=== PATIENT | male | born 1945 | race Caucasian/White ===

== ENCOUNTER 2018-11-30 10:53 | Observation (INO) | payer MEDICARE, SELFPAY ==
[2018-11-30] VITALS (9 sets, daily range): BP systolic 126–153; BP diastolic 60–79; PULSE 55–71; RESP 15–25; TEMP 36.4–36.6; O2SAT 93–96; BMI 31.4; BMI 29.0; BMI 29.1
--- NOTE | 2018-11-30 11:17 | RAD_ITS ---
STUDY: X-RAY CHEST REASON FOR EXAM: Male, 73 years old. Syncopal episode. TECHNIQUE: AP and lateral views of the chest. COMPARISON: None. FINDINGS: EKG electrodes are seen. The lungs are clear and expanded. Scattered calcified granulomas. There is no demonstrated pleural abnormality. There is borderline cardiomegaly. Normal mediastinum and stephanie. Normal visualized pulmonary arteries. There is atherosclerotic tortuosity of the aortic arch and descending thoracic aorta. There are degenerative changes of the visualized thoracic spine. Normal visualized ribs, clavicles, and shoulders. There is no demonstrated abnormality of the visualized soft tissue structures of the upper abdomen. RAD/Chest PA and Lateral IMPRESSION: No acute abnormality is seen. Electronically Signed: Edilberto Alva, at 12:53 EDT , Service support ,
--- NOTE | 2018-11-30 11:17 | EKG12_ITS ---
Test Reason : SYNCOPE Blood Pressure : / mmHG Vent. Rate : 064 BPM Atrial Rate : 064 BPM P-R Int : 158 ms QRS Dur : 088 ms QT Int : 410 ms P-R-T Axes : 020 -02 013 degrees QTc Int : 422 ms Normal sinus rhythm Inferior infarct , age undetermined ,cannot be excluded Poor R-wave progression Abnormal ECG Confirmed by JULES MCDONOUGH, TARAN ([id number]), continuity editor DEBORAH YANES ([id number]) on 12/04/2018 11:24:20 AM Referred By: Flavia Stern Confirmed By:TARAN VICENTE MD
[2018-11-30 11:41] LABS: Absolute Lymphocyte Count 2.02 X10^3/uL (0.83-4.51); Absolute Neutrophil Count 3.8 X10^3/uL (2.0-7.7); Basophil# 0.04 X10^3/uL; Basophil% 0.6 % (0-1); Eosinophil# 0.14 X10^3/uL; Eosinophils% 2.1 % (0-5); Hematocrit 47.7 % (40-54); Hemoglobin 15.8 g/dL (13.0-16.5); Lymphocyte # 2.02 X10^3/ul (4.0); Lymphocyte % 30.3 % (19-41); Mean Corp Hgb Conc 33.1 g/dL (32-36); Mean Corpuscular Hgb 30.2 pg (27.0-32.0); Mean Corpuscular Volume 91.2 fL (80-94); Mean Platelet Vol. 9.3 fl (6.2-12.0); Monocyte% 10.5 % (0-10); NRBC Flagged by Analyzer 0 % (0-5); Neutrophil # 3.75 X10^3/uL (2.7-7.7); Neutrophil % 56.2 % (47-70); Platelet Count 274 K/mm3 (150-450); RBC Distribution Width CV 13.6 % (11.6-14.6); RBC Distribution Width SD 45.7 fl (35.1-43.9); Red Blood Count 5.23 M/mm3 (4.6-6.2); White Blood Count 6.7 K/mm3 (4.4-11.0)
[2018-11-30 11:50] LABS: International Normalized Ratio 2.9; Prothrombin Time (Protime)PT. 30.2 SECONDS (11.7-14.9)
--- NOTE | 2018-11-30 12:03 | ED.VISSUMM ---
- ER Visit Summary Date of Service: 11/30/18 Chief Complaint: Syncope History of Present Illness: The patient is a 73 M who was at [employer] working out today when he sustained a syncopal episode. Patient was on a machine that does hamstrings. He is used this machine several times before. He states it was not significantly strenuous. When he was done he went to stand up and developed cramps in his hamstrings. He states he got lightheaded and diaphoretic. He sat down states he slumped over. She tells me that bystanders lowered him to the ground. She states they could not feel a pulse. He recovered and has no complaints. He did not feel any chest pain or shortness of breath or palpitations prior to passing out. He said no prior syncope. 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 Physical Examination: Afebrile vital signs stable Gen: Well-nourished well-developed Head: Normocephalic atraumatic Eyes: Perrl EOMI ENT: TMs clear no rhinorrhea moist mucous membranes Neck: Supple no lymphadenopathy no JVD nontender CVS: Regular rate rhythm no murmurs normal S1-S2 Respiratory: No distress clear to auscultation bilaterally chest nontender Abdomen: Soft nontender nondistended normal bowel sounds no masses Back: Nontender Extremity: Nontender no edema Skin: Normal color no rash Neuro: alert orientated ?3 CN II-XII intact normal strength sensation Psych: Normal affect normal mood Test Results: EKG shows a normal sinus rhythm at a rate of 64. No significant ectopy. No prolonged QT. INR is therapeutic at 2.9. Initial troponin is negative. No electrolyte disturbance including magnesium Emergency Department Course and Treatment: Patient's had no events on the monitor. This may truly be a vagal event. However unable to fully rule out cardiac etiology. Spoke with Dr. Aparicio from cardiology as well as Dr. Stern from internal medicine. Our plan is an observational stay. Impression: 1. Syncope This note was generated with [employer] dictation software. It may contain incorrect words, spelling, and punctuation that were not noted in review of the chart prior to signing ED Disposition - Plan for ED Patient: Referrals: Stephen Lopez MD [Primary Care Provider] -
[2018-11-30 12:04] LABS: Anion Gap 11 (5-15); BUN 22 mg/dL (7-18); BUN/Creat Ratio 16.2 RATIO (10-20); Calcium,Total 8.9 mg/dL (8.5-10.1); Chloride 108 mmol/L (98-107); Creatinine, Serum 1.36 mg/dL (0.70-1.30); EST Glomerular Filtration Rate 55 mL/min (>60); Est Glom Filt Rate - Afr Amer 66 mL/min (>60); Glucose 103 mg/dL (74-106); Magnesium 2.1 mg/dL (1.6-2.6); Potassium 4.2 mmol/L (3.5-5.1); Sodium Level 142 mmol/L (136-145)
--- NOTE | 2018-11-30 13:40 | ECHOCS_ITS ---
Reason For Study: Syncope/Near Syncope Procedure This was a 2D Doppler, Color Flow transthoracic echocardiogram. The study was technically difficult. Contrast injection was performed. Exam performed portable in patient room. Left Ventricle Normal LV size. Left ventricular systolic function is normal. The estimated ejection fraction is 60 %. No evidence for diastolic dysfunction. No regional wall motion abnormalities noted. Right Ventricle Normal RV size. Normal systolic function. Atria The left atrium is mildly enlarged. Normal right atrium. No doppler evidence for ASD. Bubble contrast study negative for right to left interatrial shunt. Mitral Valve There is mild mitral annular calcification. Extension of the mitral annular calcification onto the posterior mitral valve leaflet. Trivial mitral valve insufficiency. Tricuspid Valve Normal tricuspid valve. Trivial tricuspid valve insufficiency. Right ventricular systolic pressure estimated to be 20 mmHg. Aortic Valve Trisinus/trileaflet aortic valve. Normal aortic valve. Pulmonic Valve The pulmonic valve is not well visualized. Trivial pulmonic valve insufficiency. Great Vessels Normal sized aortic root. Calcified aortic root. Pericardium/Pleural No pericardial effusion. Medication Performed a rapid injection of agitated mix of 9 cc saline and 1cc air to assess for atrial septal defect. Diluted definity 4ml given slow IV push to enhance endocardial definition. MMode/2D Measurements & Calculations LVIDd: 4.8 cm IVSd: 1.1 cm Ao root diam: 3.3 cm LVIDs: 2.8 cm LVPWd: 1.2 cm RVDd: 4.1 cm FS: 41.0 % LAV(MOD-bp): 53.2 ml LVAd ap4: 34.1 cm2 SV(MOD-sp4): 70.6 ml LAV(MOD-bp) Indexed: 26.5 ml/m2 EDV(MOD-sp4): 117.2 ml LAV(MOD-sp2): 48.7 ml EDV(sp4-el): 122.4 ml LAV(MOD-sp4): 49.0 ml LVAs ap4: 19.6 cm2 ESV(MOD-sp4): 46.6 ml ESV(sp4-el): 48.3 ml EF(MOD-sp4): 60.2 % EF(sp4-el): 60.5 % SV(sp4-el): 74.1 ml LA A4 area: 16.1 cm2 LA dimension(2D): 3.8 cm RA A4 area: 9.4 cm2 Doppler Measurements & Calculations MV E max ronald: 74.7 cm/sec Lat Peak E' Ronald: 8.0 cm/sec Med Peak E' Ronald: 8.0 cm/sec MV A max ronald: 84.2 cm/sec E/E' lat: 9.3 E/E' med: 9.3 MV E/A: 0.89 Ao V2 max: 143.4 cm/sec LV V1 max: 107.2 cm/sec PA V2 max: 107.8 cm/sec Ao max P.2 mmHg LV V1 max P.6 mmHg Ao V2 mean: 99.9 cm/sec Ao mean P.4 mmHg Ao V2 VTI: 33.7 cm TR max ronald: 207.5 cm/sec TR max P.2 mmHg Interpretation Summary The study was technically difficult. Contrast injection was performed. Left ventricular systolic function is normal. The estimated ejection fraction is 60 %. The left atrium is mildly enlarged. There is mild mitral annular calcification. Extension of the mitral annular calcification onto the posterior mitral valve leaflet. Trivial mitral valve insufficiency. Trivial tricuspid valve insufficiency. Trivial pulmonic valve insufficiency. Calcified aortic root. Right ventricular systolic pressure estimated to be 20 mmHg. No evidence for diastolic dysfunction. Ordering Physician: Flavia Stern Referring Physician: Flavia Stern Performed By: Kiesha Jay RDCS, RVT
[2018-11-30 13:56] LABS: Phosphorus 1.2 mg/dL (2.5-4.9)
--- NOTE | 2018-11-30 14:08 | HP.PCM_ITS ---
Problem List (1) HTN (hypertension) Status: Chronic (2) GERD (gastroesophageal reflux disease) Status: Chronic (3) Factor 5 Leiden mutation, heterozygous Status: Chronic (4) YISSEL (obstructive sleep apnea) Status: Chronic History of Present Illness Date of Admission: 11/30/18 Chief Complaint: Syncope. The patient is a 73 year old M who presents the emergency room due to syncopal episode. Patient reports he was exercising at [employer] and while he was cleaning his equipment he developed severe bilateral leg cramping. He then notes he began to felt lightheaded and was reported to have passed out. He does not remember passing out, he reports he remembers waking up with multiple people surrounding him. He denies chest pain, shortness of breath. Denies palpitations or other associated symptoms. He does not have a history of syncope. He does report he frequently gets leg and hand cramping. He has a past medical history of hypertension, hyperlipidemia, history of PE/factor V Leiden mutation, YISSEL, GERD. Past Medical History Past Medical History (Chronic Problems): Chronic Problems YISSEL (obstructive sleep apnea) (Chronic) HTN (hypertension) (Chronic) GERD (gastroesophageal reflux disease) (Chronic) Factor 5 Leiden mutation, heterozygous (Chronic) Allergies Penicillins Allergy (Verified 08/02/13 08:58) Hives Home Medications: Ambulatory Orders Medication Instructions Recorded Hydrochlorothiazide 25 mg PO DAILY 08/02/13 Lisinopril [Zestril] 40 mg PO BID 08/02/13 Warfarin [Coumadin] 5 mg PO DAILY@1700 #30 tablet 08/03/13 Ezetimibe [Zetia] 10 mg PO DAILY 11/30/18 Pantoprazole Sodium [Protonix] 20 mg PO DAILY 11/30/18 Warfarin [Coumadin (PBKC)] 2.5 mg PO DAILY 11/30/18 Surgical History: cholecystectomy, - - Benign renal cyst removal. Psychiatric History: No pertinent psych hx Lives: Spouse/ Significant Other Smoking Status: Never smoker Alcohol: None Drugs: None - *Family History Maternal History Items: Heart Disease - Status post CABG Paternal History Items: Cancer - Unknown type Offspring History Items: Clotting Disorder - Both Daughters. Review of Systems Constitutional: Denies: Chills, Fever, Weight Change HEENT: Denies: Head Aches, Sinus Congestion, Sinus Drainage Cardiovascular: Reports: Light Headedness, Syncope. Denies: Chest Pain, Palpitations Respiratory: Denies: Cough, Shortness of breath at rest, Sputum production Gastrointestinal: Denies: Abdominal Pain, Nausea, Vomiting Genitourinary: Denies: Dysuria Musculoskeletal: Denies: Joint Pain, Joint Tenderness Skin: Denies: Rash, Wounds Neurological: Denies: Numbness, Tingling, Focal weakness Psychiatric: Denies: Anxiety, Depression, Homicidal Ideations, Suicidal Ideations Hematologic/ Lymphatic: Denies: Easy Bruising, Easy Bleeding VTE Information - Inpt Only VTE Present on Admission: No VTE Mechan Device Prophylaxis: None VTE Pharm Prophylaxis ordered?: Yes Patient Problems: Active and Suspected Problems Syncope (Acute) - Physical Exam General: Alert, Oriented x3, Cooperative HEENT: Atraumatic, PERRLA, EOMI, Normocephalic Neck: Supple, No JVD, Negative Carotid Bruits Lungs: Clear to auscultation, Normal air movement Cardiovascular: Regular rate, Regular Rhythm, Normal S1, Normal S2, No murmurs Abdomen: Bowel Sounds Present, Soft, Non Tender, Non-Distended Extremities: No clubbing, No cyanosis, No edema, Capillary Refill Less than 3 Seconds Skin: No rashes, No breakdown Musculoskeletal: No Tenderness to Palpation of Joints or Extremities Neurological: Cranial nerves II-XII grossly intact, Neuro grossly intact Psych/Mental Status: Normal Affect, Appropriate Vital Signs Temp Pulse Resp BP Pulse Ox 97.8 F 64 18 150/68 H 96 11/30/18 10:54 11/30/18 13:19 11/30/18 13:19 11/30/18 13:19 11/30/18 13:19 Oxygen Delivery Method Room Air Weight: 191 lb 2.252 oz Body Mass Index (BMI) 29.0 Laboratory Tests Past 24 Hrs 11/30/18 11/30/18 11/30/18 11:26 11:26 11:26 WBC 6.7 RBC 5.23 Hgb 15.8 Hct 47.7 MCV 91.2 MCH 30.2 MCHC 33.1 RDW Std Deviation 45.7 H RDW Coeff of Joe 13.6 Plt Count 274 MPV 9.3 Immature Gran % (Auto) 0.300 Neut % (Auto) 56.2 Lymph % (Auto) 30.3 [place] % (Auto) 10.5 H Eos % (Auto) 2.1 Baso % (Auto) 0.6 Absolute Neuts (auto) 3.8 Absolute Lymphs (auto) 2.02 Nucleated RBC % 0 PT 30.2 H INR 2.9 Sodium 142 Potassium 4.2 Chloride 108 H Carbon Dioxide 23.0 Anion Gap 11 BUN 22 H Creatinine 1.36 H Estim Creat Clear Calc 46.80 Est GFR (MDRD) Af Amer 66 Est GFR (MDRD) Non-Af 55 L BUN/Creatinine Ratio 16.2 Glucose 103 Calcium 8.9 Phosphorus Magnesium 2.1 Total Bilirubin Direct Bilirubin AST ALT Alkaline Phosphatase Troponin I < 0.015 Total Protein Albumin TSH 11/30/18 11/30/18 11:26 11:56 WBC RBC Hgb Hct MCV MCH MCHC RDW Std Deviation RDW Coeff of Joe Plt Count MPV Immature Gran % (Auto) Neut % (Auto) Lymph % (Auto) [place] % (Auto) Eos % (Auto) Baso % (Auto) Absolute Neuts (auto) Absolute Lymphs (auto) Nucleated RBC % PT INR Sodium Potassium Chloride Carbon Dioxide Anion Gap BUN Creatinine Estim Creat Clear Calc Est GFR (MDRD) Af Amer Est GFR (MDRD) Non-Af BUN/Creatinine Ratio Glucose Calcium Phosphorus 1.2 L Magnesium Pending Total Bilirubin Pending Direct Bilirubin Pending AST Pending ALT Pending Alkaline Phosphatase Pending Troponin I Total Protein Pending Albumin Pending TSH Pending Assessment/Plan All Active Problems Syncope (Acute) 1. Syncope, suspected vasovagal-EKG on admission without ST-T changes. Initial troponin negative. Trend enzymes. Obtain echocardiogram. Stress test ordered. Check orthostatic vitals. TSH, mg normal. IV fluids. 2. Acute kidney injury-suspected secondary to dehydration. Baseline creatinine appears to be 0.9. Creatinine on admission 1.3. IV fluids. Trend BMP. Recommend discontinuing HCTZ regimen going forward. 3. Hypertension-continue lisinopril, decrease to 40mg daily, prior on 40mg BID? Discontinue home HCTZ regimen. 4. Hyperlipidemia-continue Zetia regimen. 5. GERD-continue Protonix regimen. 6. Factor V Leiden mutation-on anticoagulation with Coumadin. INR therapeutic. 7. YISSEL-continue home CPAP regimen. DVT prophylaxis-Coumadin This patient was seen by NICHOLAS Reed under the supervision of Dr. Stern.
[2018-11-30] MEDS: 0.9% Normal Saline 1,000 ML 100 ML IV (14:10)
[2018-11-30 14:26] LABS: AST(SGOT) 54 U/L (15-37); Alanine Aminotransfer ALT/SGPT 40 U/L (16-61); Albumin, Serum 3.7 g/dL (3.2-5.0); Alkaline Phosphatase 53 U/L (45-117); Bilirubin, Direct 0.15 mg/dL (0.00-0.30); Globulin 4.5 g/dL (2.2-4.2); Protein, Total 8.2 g/dL (6.4-8.2); Thyroid Stim Hormone (TSH) 3.25 uIU/mL (0.358-3.74)
--- NOTE | 2018-11-30 14:32 | CON.PCM_ITS ---
Problem List (1) Syncope Status: Acute (2) HTN (hypertension) Status: Chronic (3) GERD (gastroesophageal reflux disease) Status: Chronic (4) Factor 5 Leiden mutation, heterozygous Status: Chronic Reason for Consult Date of Consultation: 11/30/18 History of Present Illness: The patient is a 73 year old white male with a past medical history of hypertension, GERD, factor V deficiency, on chronic warfarin/Coumadin therapy, who presents for evaluation of syncope. He states for some time now he has been noticing episodes of dizziness more so when he bends over and stands up. He states he had never lost consciousness until today. Today he was doing his routine workout at the gym. He states it is not uncommon he has occasional cramps in his lower extremities but they were more prominent today in his thighs. He believes he may have become somewhat diaphoretic and dizzy/lightheaded. He states he went to sit down on another piece of equipment where he could sit and rest. The next thing he remembers is lying on the floor looking up with people staring down at him. His states that she was unable to arouse him. He was placed on the floor and it was difficult to locate a pulse. However after being on the floor he appeared to be awake and alert again. He does not recall if he felt somewhat nauseated. There was no emesis. There was no loss of bladder or bowel function. There was no seizure activity reported. He states he does not recall having any form of chest discomfort or difficulty breathing prior to his event. He notes that yesterday he had been out mowing his lawn with his walk behind lawnmower with no difficulties. He believes he had his usual fluid and food intake today. He states he drinks water occasionally when he is working out from the water fountain. He does not believe he allowed himself to become dehydrated. However he does admit that he does not drink as much water as he probably should. He underwent evaluation in 2013 and was found to have evidence of pulmonary emboli. At that time a transthoracic echocardiogram was performed. His left ventricle was thought to be normal with an LVEF of 60% with trivial MR/TR. His estimated RV systolic pressure was 26 mmHg. He had decreased diastolic compliance. He had laboratory profile performed today. His troponin I levels negative. An ECG was performed. It demonstrated the appearance of underlying sinus rhythm with poor R wave progression with an inferior MS pattern of indeterminate age cannot be excluded. The present time he appears to be resting comfortably. He is receiving IV fluids. [] Past Medical History Allergies/Adverse Reactions: Allergies Penicillins Allergy (Verified 08/02/13 08:58) Hives Home Medications: Ambulatory Orders Medication Instructions Recorded Hydrochlorothiazide 25 mg PO DAILY 08/02/13 Lisinopril [Zestril] 40 mg PO BID 08/02/13 Warfarin [Coumadin] 5 mg PO DAILY@1700 #30 tablet 08/03/13 Ezetimibe [Zetia] 10 mg PO DAILY 11/30/18 Pantoprazole Sodium [Protonix] 20 mg PO DAILY 11/30/18 Warfarin [Coumadin (PBKC)] 2.5 mg PO DAILY 11/30/18 Past Medical History (Chronic Problems): Chronic Problems HTN (hypertension) (Chronic) GERD (gastroesophageal reflux disease) (Chronic) Factor 5 Leiden mutation, heterozygous (Chronic) Surgical History: noncontributory Psychiatric History: No pertinent psych hx Lives: Spouse/ Significant Other Smoking Status: Never smoker Alcohol: None Drugs: None Review of Systems - Review of Systems General: Denies: Fever, Night Sweats, Fatigue Cardiovascular: Reports: Dizziness, Syncope, - - Diaphoresis. Denies: Chest Discomfort, Shortness of Breath, Orthopnea, PND, Peripheral Edema, Palpitations, Lightheadedness, Near Syncope Respiratory: Denies: Cough, Sputum Production, Hemoptysis Gastrointestinal: Denies: Hematemesis, Hematochezia, Melena Genitourinary: Denies: Dysuria, Hematuria Skin: Denies: Rash Subjectve: This is a 73-year-old healthy-appearing white male who appears to be resting comfortably at the moment in no acute distress. Objective: Vital Signs Temp Pulse Resp BP Pulse Ox 97.8 F 57 L 18 135/69 H 96 11/30/18 10:54 11/30/18 14:22 11/30/18 13:19 11/30/18 14:22 11/30/18 13:19 Oxygen Delivery Method Room Air Weight: 191 lb 2.252 oz Body Mass Index (BMI) 29.0 Orthostatic Vital Signs Start: 11/30/18 14:22 Freq: q24h Status: Active Protocol: Activity Type Activity Date Activity User E-Sign Co-Sign Detail Recorded Client Recorded Date Recorded By Document 11/30/18 14:22 EE [id number] 11/30/18 14:25 EEB 11/30/18 14:22 Orthostatic Vitals Standing -Blood Pressure (90/60-120/80 mm Hg) 153/79 H -Extremity Use Right Arm -Pulse Rate (60-100 beats/min) 67 Sitting -Blood Pressure (90/60-120/80 mm Hg) 151/77 H -Extremity Use Right Arm -Pulse Rate (60-100 beats/min) 65 Lying -Blood Pressure (90/60-120/80 mm Hg) 135/69 H -Extremity Use Right Arm -Pulse Rate (60-100 beats/min) 57 L General: Awake, Alert, Oriented x 3, Cooperative, No Acute Distress HEENT: Atraumatic, Normocephalic, PERRL, EOMI, Sclera Non Icteric Oral: Moist Mucosa Neck: Supple, Good ROM, No JVD Lungs: Clear to auscultation Cardiovascular: Regular Rhythm, Normal S1, Normal S2 Vascular: No Carotid Bruits Abdomen: Bowel Sounds Present, Soft, Non Tender Extremities: No Cyanosis, No Clubbing, No edema Neurological: No Focal Motor or Sensory Deficit Psych/Mental Status: Appropriate 11/30/18 11:26: WBC 6.7, RBC 5.23, Hgb 15.8, Hct 47.7, MCV 91.2, MCH 30.2, MCHC 33.1, Plt Count 274, MPV 9.3, Immature Gran % (Auto) 0.300, Neut % (Auto) 56.2, Lymph % (Auto) 30.3, [place] % (Auto) 10.5 H, Eos % (Auto) 2.1, Baso % (Auto) 0.6, Absolute Neuts (auto) 3.8, Nucleated RBC % 0 11/30/18 11:26: PT 30.2 H, INR 2.9 11/30/18 11:26: Sodium 142, Potassium 4.2, Chloride 108 H, Carbon Dioxide 23.0, Anion Gap 11, BUN 22 H, Creatinine 1.36 H, Est GFR (MDRD) Af Amer 66, Est GFR (MDRD) Non-Af 55 L, BUN/Creatinine Ratio 16.2, Glucose 103, Calcium 8.9, Magnesium 2.1, Troponin I < 0.015 11/30/18 11:26: Phosphorus 1.2 L 11/30/18 11:56: Magnesium 2.0, Total Bilirubin 0.50, Direct Bilirubin 0.15 Rhythm: Sinus rhythm EKG: As noted above ECHO: As noted above CXR: Preliminary evaluation: No acute cardiopulmonary disease process appreciated: Please see official report Assessment/Plan 1. Syncope The patient had an episode of syncope. The etiology is unclear. Based upon his history there would be concerned that this may be vasovagal mediated. However at the same time based upon his age, history of hypertension, etc., would not be unreasonable to evaluate him for other cardiovascular related issues. He will be followed with cardiac enzymes and ECGs. He will have echocardiogram to assess his ventricular wall motion systolic function to look for any new changes compared to his previous study that would indicate other concerns. He will also be considered for exercise tolerance test/imaging study to evaluate for any obvious evidence of stress-induced cardiac dysrhythmias or myocardial ischemia that could trigger cardiac dysrhythmias with contribute to his event. He was not thought to have evidence of any thromboembolic disease as he has been on anticoagulant therapy with therapeutic INR levels. He was not witnessed to have any evidence of obvious seizure related disorders. 2. Hypertension He will continue medical management as deemed appropriate. 3. GERD He will continue under the care of internal medicine. 4. Factor V deficiency He has been on anticoagulant therapy. He states if anything his INR level has been somewhat elevated recently as opposed to subtherapeutic. Hopefully this does provide him protection from any thromboembolic event such as recurrent PE that could bring out syncope. Comment: The above was discussed and reviewed with the patient, his spouse, other family members present, and the [facility] emergency department staff. This note was generated using a voice recognition system and there may be incorrect words, spelling or punctuation that were not noted when reviewing the office note prior to saving.
--- NOTE | 2018-11-30 19:21 | CPS ---
Patient does not want CPAP at night will be placed on 2l/m at night.
[2018-12-01] VITALS (7 sets, daily range): BP systolic 116–136; BP diastolic 65–73; PULSE 52–62; RESP 14–16; TEMP 36.4–36.5; O2SAT 96–97
[2018-12-01] MEDS: 0.9% Normal Saline 1,000 ML 100 ML IV (00:14)
--- NOTE | 2018-12-01 05:55 | EKG12_ITS ---
Test Reason : AM EKG Blood Pressure : / mmHG Vent. Rate : 049 BPM Atrial Rate : 049 BPM P-R Int : 148 ms QRS Dur : 096 ms QT Int : 444 ms P-R-T Axes : 025 009 027 degrees QTc Int : 401 ms Sinus bradycardia Inferior infarct , age undetermined Abnormal ECG When compared with ECG of 30-NOV-2018 11:26, MANUAL COMPARISON REQUIRED, DATA IS UNCONFIRMED Confirmed by HARRY DICKERSON ([id number]), advertising editor DEBORAH YANES ([id number]) on 12/06/2018 1:56:34 PM Referred By: Flavia Stern Confirmed By:HARRY DICKERSON
[2018-12-01 06:12] LABS: Hematocrit 44.5 % (40-54); Hemoglobin 14.6 g/dL (13.0-16.5); Mean Corp Hgb Conc 32.8 g/dL (32-36); Mean Corpuscular Hgb 30.4 pg (27.0-32.0); Mean Corpuscular Volume 92.7 fL (80-94); Mean Platelet Vol. 9.3 fl (6.2-12.0); Platelet Count 259 K/mm3 (150-450); RBC Distribution Width CV 13.7 % (11.6-14.6); RBC Distribution Width SD 46.6 fl (35.1-43.9)
[2018-12-01] MEDS: Lisinopril 40 MG Tablet PO (06:19)
[2018-12-01 06:47] LABS: Anion Gap 7 (5-15); BUN 18 mg/dL (7-18); BUN/Creat Ratio 16.5 RATIO (10-20); Calcium,Total 7.8 mg/dL (8.5-10.1); Chloride 110 mmol/L (98-107); Cholesterol 145 mg/dL (200); Creatinine, Serum 1.09 mg/dL (0.70-1.30); EST Glomerular Filtration Rate 70 mL/min (>60); Est Glom Filt Rate - Afr Amer 85 mL/min (>60); Estimated Creatinine Clearance 58.39 ml/min; Glucose 91 mg/dL (74-106); High Density Lipoprotein 29 mg/dL; Potassium 4.1 mmol/L (3.5-5.1); Sodium Level 142 mmol/L (136-145); Triglycerides 154 mg/dL; Very Low Density Lipoprotein 31 mg/dL (5-40)
--- NOTE | 2018-12-01 10:38 | DCINST_ITS ---
- Discharge Diagnoses Current Active Problems: Current Active and Chronic Problems Syncope (Acute) YISSEL (obstructive sleep apnea) (Chronic) You will use the following diet at home:: No restrictions Discharge Activity: Return to Normal Activity Call your doctor if you observe: Shortness of breath, Dizziness, Fainting spells, Chest pain Allergies/Adverse Reactions: Allergies Penicillins Allergy (Verified 08/02/13 08:58) Hives Medications to take at Discharge Warfarin [Coumadin] 5 mg PO DAILY@1700 #30 tablet 08/03/13 Ezetimibe [Zetia] 10 mg PO DAILY 11/30/18 Pantoprazole Sodium [Protonix] 20 mg PO DAILY 11/30/18 Warfarin [Coumadin] 2.5 mg PO DAILY 11/30/18 Lisinopril [Zestril] 40 mg PO DAILY tab 12/01/18 Primary Care Physician: Stephen Lopez MD [Primary Care Provider] - Please follow up with your Primary Care Physician in: 1 Week Test Results: Test results from this visit will be discussed in further detail at your follow- up appointment, if applicable. Proposed Discharge Date: 12/01/18
[2018-12-01 11:14] LABS: International Normalized Ratio 2.5; Prothrombin Time (Protime)PT. 27.3 SECONDS (11.7-14.9)
--- NOTE | 2018-12-01 11:15 | PCM.DC.SUM ---
Discharge Date and Diagnosis Date of Admission: 11/30/18 Date of Discharge: 12/01/18 - Primary Discharge Diagnosis Active and Suspected Problems 1. Syncope, suspected vasovagal 2. Acute kidney injury, secondary to dehydration and HCTZ regimen-resolved. 3. Hypertension 4. Hyperlipidemia 5. GERD 6. Factor V Leiden mutation-on anticoagulation with Coumadin. 7. YISSEL - Secondary Discharge Diagnosis Chronic Problems YISSEL (obstructive sleep apnea) (Chronic) HTN (hypertension) (Chronic) GERD (gastroesophageal reflux disease) (Chronic) Factor 5 Leiden mutation, heterozygous (Chronic) Hospital Course and Treatment Imaging Results: Diagnostic Data Chest X-Ray 11/30/18 11:17 IMPRESSION: No acute abnormality is seen. Electronically Signed: Edilberto Duganchristo, at 12:53 EDT , Service support , Dr. Aparicio- Cardiology Operations: None Procedures: 2-D Echocardiogram, Stress test Summary of Care Provided: The patient is a 73 year old M admitted 11/30/2018 due to syncope. 1. Syncope, suspected vasovagal-EKG on admission without ST-T changes. Troponin negative. Echocardiogram demonstrated an EF of 60%, no evidence of diastolic dysfunction. Orthostatic vitals negative. TSH, magnesium normal. Patient underwent nuclear stress test which was negative for ischemia. No arrhythmias noted on telemetry. Follow-up with primary care physician in 1 week. 2. Acute kidney injury-secondary to dehydration/HCTZ regimen. Baseline creatinine appears to be 0.9. Creatinine on admission 1.3. Resolved with IV fluids. Discontinue HCTZ regimen going forward. 3. Hypertension-continue lisinopril, decrease to 40mg daily, prior on 40mg BID? Discontinue home HCTZ regimen. 4. Hyperlipidemia-continue Zetia regimen. 5. GERD-continue Protonix regimen. 6. Factor V Leiden mutation-on anticoagulation with Coumadin. INR therapeutic. 7. YISSEL-continue home CPAP regimen. General: Alert, Oriented x3, Cooperative HEENT: Atraumatic, PERRLA, EOMI, Normocephalic Neck: Supple, No JVD, Negative Carotid Bruits Lungs: Clear to auscultation, Normal air movement Cardiovascular: Regular rate, Regular Rhythm, Normal S1, Normal S2, No murmurs Abdomen: Bowel Sounds Present, Soft, Non Tender, Non-Distended Extremities: No clubbing, No cyanosis, No edema, Capillary Refill Less than 3 Seconds Skin: No rashes, No breakdown Musculoskeletal: No Tenderness to Palpation of Joints or Extremities Neurological: Cranial nerves II-XII grossly intact, Neuro grossly intact Psych/Mental Status: Normal Affect, Appropriate Patient seen and examined prior to discharge. Physical assessment as noted above. Patient is stable for discharge with follow up recommendations as noted above. This patient was seen by NICHOLAS Reed under the supervision of Dr. Stern. - Physical Exam Vital Signs Temp Pulse Resp BP Pulse Ox 97.6 F L 62 14 136/72 H 96 12/01/18 09:05 12/01/18 09:05 12/01/18 09:05 12/01/18 09:05 12/01/18 09:05 Oxygen Flow Rate (L/min) 2 Oxygen Delivery Method Room Air Weight: 191 lb 2.252 oz Body Mass Index (BMI) 29.0 Orthostatic Vital Signs Start: 11/30/18 14:22 Freq: q24h Status: Active Protocol: Activity Type Activity Date Activity User E-Sign Co-Sign Detail Recorded Client Recorded Date Recorded By Document 12/01/18 06:51 BS [id number] 12/01/18 06:58 BS 12/01/18 06:51 Orthostatic Vitals Standing -Blood Pressure (90/60-120/80) 126/71 H -Extremity Use Right Arm -Pulse Rate (60-100) 55 L Sitting -Blood Pressure (90/60-120/80) 127/73 H -Extremity Use Right Arm -Pulse Rate (60-100) 54 L Lying -Blood Pressure (90/60-120/80) 120/72 -Extremity Use Right Arm -Pulse Rate (60-100) 54 L Intake and Output for Last 24 Hours 11/29/18 11/30/18 12/01/18 23:59 23:59 23:59 Intake Total 600 / 600 1843.33 / 1843.33 Balance 600 / 600 1843.33 / 1843.33 Laboratory Tests Past 24 Hrs 11/30/18 11/30/18 11/30/18 11:26 11:26 11:26 WBC 6.7 RBC 5.23 Hgb 15.8 Hct 47.7 MCV 91.2 MCH 30.2 MCHC 33.1 RDW Std Deviation 45.7 H RDW Coeff of Joe 13.6 Plt Count 274 MPV 9.3 Immature Gran % (Auto) 0.300 Neut % (Auto) 56.2 Lymph % (Auto) 30.3 [place] % (Auto) 10.5 H Eos % (Auto) 2.1 Baso % (Auto) 0.6 Absolute Neuts (auto) 3.8 Absolute Lymphs (auto) 2.02 Nucleated RBC % 0 PT 30.2 H INR 2.9 Sodium 142 Potassium 4.2 Chloride 108 H Carbon Dioxide 23.0 Anion Gap 11 BUN 22 H Creatinine 1.36 H Estim Creat Clear Calc 46.80 Est GFR (MDRD) Af Amer 66 Est GFR (MDRD) Non-Af 55 L BUN/Creatinine Ratio 16.2 Glucose 103 Calcium 8.9 Phosphorus Magnesium 2.1 Total Bilirubin Direct Bilirubin AST ALT Alkaline Phosphatase Troponin I < 0.015 Total Protein Albumin Globulin Triglycerides Cholesterol LDL Cholesterol VLDL Cholesterol HDL Cholesterol TSH 11/30/18 11/30/18 11/30/18 11:26 11:56 14:52 WBC RBC Hgb Hct MCV MCH MCHC RDW Std Deviation RDW Coeff of Joe Plt Count MPV Immature Gran % (Auto) Neut % (Auto) Lymph % (Auto) [place] % (Auto) Eos % (Auto) Baso % (Auto) Absolute Neuts (auto) Absolute Lymphs (auto) Nucleated RBC % PT INR Sodium Potassium Chloride Carbon Dioxide Anion Gap BUN Creatinine Estim Creat Clear Calc Est GFR (MDRD) Af Amer Est GFR (MDRD) Non-Af BUN/Creatinine Ratio Glucose Calcium Phosphorus 1.2 L Magnesium 2.0 Total Bilirubin 0.50 Direct Bilirubin 0.15 AST 54 H ALT 40 Alkaline Phosphatase 53 Troponin I < 0.015 Total Protein 8.2 Albumin 3.7 Globulin 4.5 H Triglycerides Cholesterol LDL Cholesterol VLDL Cholesterol HDL Cholesterol TSH 3.25 11/30/18 12/01/18 12/01/18 17:50 05:38 05:38 WBC 7.0 RBC 4.80 Hgb 14.6 Hct 44.5 MCV 92.7 MCH 30.4 MCHC 32.8 RDW Std Deviation 46.6 H RDW Coeff of Joe 13.7 Plt Count 259 MPV 9.3 Immature Gran % (Auto) Neut % (Auto) Lymph % (Auto) [place] % (Auto) Eos % (Auto) Baso % (Auto) Absolute Neuts (auto) Absolute Lymphs (auto) Nucleated RBC % PT INR Sodium 142 Potassium 4.1 Chloride 110 H Carbon Dioxide 25.0 Anion Gap 7 BUN 18 Creatinine 1.09 Estim Creat Clear Calc 58.39 Est GFR (MDRD) Af Amer 85 Est GFR (MDRD) Non-Af 70 BUN/Creatinine Ratio 16.5 Glucose 91 Calcium 7.8 L Phosphorus Magnesium Total Bilirubin Direct Bilirubin AST ALT Alkaline Phosphatase Troponin I < 0.015 Total Protein Albumin Globulin Triglycerides 154 Cholesterol 145 LDL Cholesterol 85 VLDL Cholesterol 31 HDL Cholesterol 29 L TSH 12/01/18 10:50 WBC RBC Hgb Hct MCV MCH MCHC RDW Std Deviation RDW Coeff of Joe Plt Count MPV Immature Gran % (Auto) Neut % (Auto) Lymph % (Auto) [place] % (Auto) Eos % (Auto) Baso % (Auto) Absolute Neuts (auto) Absolute Lymphs (auto) Nucleated RBC % PT Pending INR Pending Sodium Potassium Chloride Carbon Dioxide Anion Gap BUN Creatinine Estim Creat Clear Calc Est GFR (MDRD) Af Amer Est GFR (MDRD) Non-Af BUN/Creatinine Ratio Glucose Calcium Phosphorus Magnesium Total Bilirubin Direct Bilirubin AST ALT Alkaline Phosphatase Troponin I Total Protein Albumin Globulin Triglycerides Cholesterol LDL Cholesterol VLDL Cholesterol HDL Cholesterol TSH Discharge Diet: Low fat/ Low Cholesterol Discharge Activity: Return to Normal Activity Call your doctor if you observe: Shortness of breath, Dizziness, Fainting spells, Chest pain Home Medications: Medications to take at Discharge Warfarin [Coumadin] 5 mg PO DAILY@1700 #30 tablet 08/03/13 Ezetimibe [Zetia] 10 mg PO DAILY 11/30/18 Pantoprazole Sodium [Protonix] 20 mg PO DAILY 11/30/18 Warfarin [Coumadin] 2.5 mg PO DAILY 11/30/18 Lisinopril [Zestril] 40 mg PO DAILY tab 12/01/18 Primary Care Physician: Stephen Lopez MD [Primary Care Provider] - Please follow up with your Primary Care Physician in: 1 Week Disposition: Home Minutes spent on discharge:: 35 Patient Condition:: Stable Medical Necessity - Tobacco Use Smoking Status: Never smoker Meaningful Use Info Meaningful Use Diagnoses (Choose all that apply): None applicable
--- NOTE | 2018-12-01 12:11 | STRESSREP ---
Stress Test Report Date: 12-01-18 Procedure: Exercise tolerance test/imaging study Indications: Syncope Consent: Per the patient Procedure: The patient exercised on a Nick protocol for 7 minutes completing Stage I and 1 minute of Stage II achieving a peak heart rate of 133 bpm (90 % predicted maximal heart rate) with a peak blood pressure 188/72 mmHg and a peak MET capacity of 8 METs. The baseline ECG demonstrated normal sinus rhythm. The peak exercise ECG demonstrated no obvious ECG changes. There was an isolated PVC during exercise. The functional capacity was considered good. There was no complaint of chest discomfort during exercise or recovery. The examination was discontinued secondary to dyspnea. Impression: 1. Technically adequate (percent predicted maximal heart rate greater than 85%) exercise tolerance test 2. Peak exercise ECG with no obvious ECG changes 3. There was an isolated PVC during exercise 4. Nuclear images pending Myocardial perfusion imaging study: Technique: The patient was injected with 13.4 mCi of technetium 99m Cardiolite and subsequently rest SPECT Cardiolite nuclear imaging was obtained in the horizontal long, vertical long, and short axis views. The patient exercised on a Nick protocol for 7 minutes completing Stage I and 1 minute of Stage II achieving a peak heart rate of 133 bpm (90 % predicted maximal heart rate) with a peak blood pressure 188/72 mmHg and a peak MET capacity of 8 METs. The patient was injected with 40.2 mCi of technetium 99m Cardiolite and subsequently stress SPECT Cardiolite nuclear imaging was obtained in the horizontal long, vertical long, and short axis views. A gated Cardiolite study at peak stress was obtained. Interpretation: Rest and stress SPECT Cardiolite nuclear imaging status post realignment, normalization, and attenuation correction, demonstrates the appearance at rest of a small area of diminished tracer uptake in portions of the distal anterior/anteroseptal segments and distal inferior/inferior apical segments which appear to improve and/or normalize following stress. There are similar type findings on the resting and stress polar map images. There is end systolic thickening and brightening. The gated Cardiolite study demonstrates myocardial thickening and inward wall motion. The reported LVEF is 65 %. Impression: 1. Rest and stress SPECT Cardiolite nuclear imaging demonstrate the appearance at rest of a small area of diminished myocardial perfusion/tracer uptake in portions of the distal anterior/anteroseptal segments and distal inferior/inferoapical segments which appear to improve and/or normalize following stress with no myocardial perfusion changes consider diagnostic for associated stress-induced myocardial ischemia. 2. The gated Cardiolite study reports an LVEF of 65 %. This note was generated with [employer] software. It may contain incorrect words, spelling, and punctuation that were not noted in checking the note before signing.
--- NOTE | 2018-12-01 14:24 | PCM.PN.CARD ---
Subjectve: The patient was evaluated earlier this day. He denied ongoing chest discomfort or difficulty breathing. There is been no episodes of overt CHF or pulmonary edema. He has had no recurrent near syncope or syncope. Objective: Vital Signs Temp Pulse Resp BP Pulse Ox 97.6 F L 62 14 136/72 H 96 12/01/18 09:05 12/01/18 09:05 12/01/18 09:05 12/01/18 09:05 12/01/18 09:05 Oxygen Flow Rate (L/min) 2 Oxygen Delivery Method Room Air Weight: 191 lb 2.252 oz Body Mass Index (BMI) 29.0 Intake and Output for Last 24 Hours 11/29/18 11/30/18 12/01/18 23:59 23:59 23:59 Intake Total 600 / 600 2343.33 / 2343.33 Balance 600 / 600 2343.33 / 2343.33 General: Awake, Alert, Oriented x 3, Cooperative, No Acute Distress HEENT: Atraumatic, Normocephalic, PERRL, EOMI, Sclera Non Icteric Oral: Moist Mucosa Neck: Supple, Good ROM, No JVD Lungs: Clear to auscultation Cardiovascular: Regular Rhythm, Normal S1, Normal S2 Vascular: No Carotid Bruits Abdomen: Bowel Sounds Present, Soft, Non Tender Extremities: No Cyanosis, No Clubbing, No edema Neurological: No Focal Motor or Sensory Deficit Psych/Mental Status: Appropriate 11/30/18 11:56: Magnesium 2.0, Total Bilirubin 0.50, Direct Bilirubin 0.15 11/30/18 14:52: Troponin I < 0.015 11/30/18 17:50: Troponin I < 0.015 12/01/18 05:38: WBC 7.0, RBC 4.80, Hgb 14.6, Hct 44.5, MCV 92.7, MCH 30.4, MCHC 32.8, Plt Count 259, MPV 9.3 12/01/18 05:38: Sodium 142, Potassium 4.1, Chloride 110 H, Carbon Dioxide 25.0, Anion Gap 7, BUN 18, Creatinine 1.09, Est GFR (MDRD) Af Amer 85, Est GFR (MDRD) Non-Af 70, BUN/Creatinine Ratio 16.5, Glucose 91, Calcium 7.8 L, Triglycerides 154, Cholesterol 145, LDL Cholesterol 85, VLDL Cholesterol 31, HDL Cholesterol 29 L 12/01/18 10:50: PT 27.3 H, INR 2.5 Rhythm: Sinus rhythm EKG: Sinus rhythm ECHO: Interpretation Summary The study was technically difficult. Contrast injection was performed. Left ventricular systolic function is normal. The estimated ejection fraction is 60 %. The left atrium is mildly enlarged. There is mild mitral annular calcification. Extension of the mitral annular calcification onto the posterior mitral valve leaflet. Trivial mitral valve insufficiency. Trivial tricuspid valve insufficiency. Trivial pulmonic valve insufficiency. Calcified aortic root. Right ventricular systolic pressure estimated to be 20 mmHg. No evidence for diastolic dysfunction. Stress Test: Procedure: Exercise tolerance test/imaging study Indications: Syncope Consent: Per the patient Procedure: The patient exercised on a Nick protocol for 7 minutes completing Stage I and 1 minute of Stage II achieving a peak heart rate of 133 bpm (90 % predicted maximal heart rate) with a peak blood pressure 188/72 mmHg and a peak MET capacity of 8 METs. The baseline ECG demonstrated normal sinus rhythm. The peak exercise ECG demonstrated no obvious ECG changes. There was an isolated PVC during exercise. The functional capacity was considered good. There was no complaint of chest discomfort during exercise or recovery. The examination was discontinued secondary to dyspnea. Impression: 1. Technically adequate (percent predicted maximal heart rate greater than 85%) exercise tolerance test 2. Peak exercise ECG with no obvious ECG changes 3. There was an isolated PVC during exercise 4. Nuclear images pending Myocardial perfusion imaging study: Technique: The patient was injected with 13.4 mCi of technetium 99m Cardiolite and subsequently rest SPECT Cardiolite nuclear imaging was obtained in the horizontal long, vertical long, and short axis views. The patient exercised on a Nick protocol for 7 minutes completing Stage I and 1 minute of Stage II achieving a peak heart rate of 133 bpm (90 % predicted maximal heart rate) with a peak blood pressure 188/72 mmHg and a peak MET capacity of 8 METs. The patient was injected with 40.2 mCi of technetium 99m Cardiolite and subsequently stress SPECT Cardiolite nuclear imaging was obtained in the horizontal long, vertical long, and short axis views. A gated Cardiolite study at peak stress was obtained. Interpretation: Rest and stress SPECT Cardiolite nuclear imaging status post realignment, normalization, and attenuation correction, demonstrates the appearance at rest of a small area of diminished tracer uptake in portions of the distal anterior/anteroseptal segments and distal inferior/inferior apical segments which appear to improve and/or normalize following stress. There are similar type findings on the resting and stress polar map images. There is end systolic thickening and brightening. The gated Cardiolite study demonstrates myocardial thickening and inward wall motion. The reported LVEF is 65 %. Impression: 1. Rest and stress SPECT Cardiolite nuclear imaging demonstrate the appearance at rest of a small area of diminished myocardial perfusion/tracer uptake in portions of the distal anterior/anteroseptal segments and distal inferior/inferoapical segments which appear to improve and/or normalize following stress with no myocardial perfusion changes consider diagnostic for associated stress-induced myocardial ischemia. 2. The gated Cardiolite study reports an LVEF of 65 %. Medical Necessity - Tobacco Use Smoking Status: Never smoker Assessment/Plan 1. Syncope The patient had an episode of syncope. Based upon his history there would be concerned that this may be vasovagal mediated. The patient has undergone further evaluation. He is rule out PA protocol is negative. His echocardiogram suggests normal left ventricular wall motion and systolic function and LVEF. His stress nuclear imaging study is considered negative for stress-induced myocardial ischemia. At the present time he has not been found to have obvious cardiac dysrhythmias to explain the events. At the present time it appears his symptoms/events may be related to a combination of dehydration, orthostatic changes, and vagally mediated events. It would be recommended that he increase his volume intake to avoid dehydration, monitor his positional changes, and monitor for any other concerning symptoms or events that would warrant further evaluation. Otherwise at the present time it was not felt that he required additional cardiac diagnostic studies and/or therapeutic intervention. 2. Hypertension He will continue medical management as deemed appropriate. 3. GERD He will continue under the care of internal medicine. 4. Factor V deficiency He has been on anticoagulant therapy. He states if anything his INR level has been somewhat elevated recently as opposed to subtherapeutic. Hopefully this does provide him protection from any thromboembolic event such as recurrent PE that could bring out syncope. Comment: The above was discussed and reviewed with the patient and Dr. Stern. This note was generated using a voice recognition system and there may be incorrect words, spelling or punctuation that were not noted when reviewing the office note prior to saving.
== END 2018-12-01 10:38 | disposition home or self-care (01) ==
LOC: ED 11:30 → PCU 13:20
PROVIDERS: Nurse Practitioner Family; Admitting Provider Internal Medicine; Emergency Provider Emergency Medicine; Family Provider Family Medicine; PCP Family Medicine; Referring Provider Internal Medicine; Visit Provider Internal Medicine
DX: R55 Syncope and collapse (principal); N17.9 Acute kidney failure, unspecified; E86.0 Dehydration; D68.51 Activated protein C resistance; I08.1 Rheumatic disorders of both mitral and tricuspid valves; I10 Essential (primary) hypertension; E78.5 Hyperlipidemia, unspecified; K21.9 Gastro-esophageal reflux disease without esophagitis; R94.31 Abnormal electrocardiogram [ECG] [EKG]; G47.33 Obstructive sleep apnea (adult) (pediatric); Z79.01 Long term (current) use of anticoagulants; Z79.899 Other long term (current) drug therapy; Z86.711 Personal history of pulmonary embolism; Z86.718 Personal history of other venous thrombosis and embolism
CPT/HCPCS: 36415; 71046; 78452; 80048; 80061; 80076; 83735; 84100; 84443; 84484; 85025; 85027; 85610; 93005; 93017; 93306; 94002; 96360; 96361; 99218; 99285; A9500; J7030; Q9957; A4216; C8929; G0378

== ENCOUNTER → 2018-12-07 12:06 | Outpatient (CLI) | payer MEDICARE, SELFPAY ==
[2018-11-30 13:34] VITALS: BMI 29.0
[2018-12-07 12:37] LABS: International Normalized Ratio 2.6
== END ==
PROVIDERS: Family Provider Family Medicine; PCP Family Medicine; Referring Provider Family Medicine; Visit Provider Family Medicine
DX: I26.99 Other pulmonary embolism without acute cor pulmonale (principal); Z86.711 Personal history of pulmonary embolism
CPT/HCPCS: 85610

== ENCOUNTER → 2018-12-13 12:29 | Outpatient (CLI) | payer MEDICARE, SELFPAY ==
[2018-11-30 13:34] VITALS: BMI 29.0
[2018-12-13 13:13] LABS: International Normalized Ratio 2.5; Prothrombin Time (Protime)PT. 26.6 SECONDS (11.7-14.9)
== END ==
PROVIDERS: Family Provider Family Medicine; PCP Family Medicine; Referring Provider Family Medicine; Visit Provider Family Medicine
DX: Z79.01 Long term (current) use of anticoagulants (principal)
CPT/HCPCS: 85610

== ENCOUNTER → 2020-11-02 | Outpatient (CLI) | payer MEDICARE, SELFPAY ==
[2020-11-02 12:29] LABS: International Normalized Ratio 1.9
== END | disposition home or self-care (01) ==
LOC: LABSPEC 12:04
PROVIDERS: PCP Family Medicine; Visit Provider Family Medicine
DX: D68.51 Activated protein C resistance (principal); Z86.718 Personal history of other venous thrombosis and embolism
CPT/HCPCS: 85610

== ENCOUNTER → 2020-11-05 | Outpatient (CLI) | payer MEDICARE, SELFPAY ==
[2020-11-05 10:39] LABS: International Normalized Ratio 2.5; Prothrombin Time (Protime)PT. 26.1 SECONDS (11.7-14.9)
== END | disposition home or self-care (01) ==
PROVIDERS: PCP Family Medicine; Visit Provider Family Medicine
DX: D68.51 Activated protein C resistance (principal); Z86.718 Personal history of other venous thrombosis and embolism
CPT/HCPCS: 85610

== ENCOUNTER → 2020-11-12 | Outpatient (CLI) | payer MEDICARE, SELFPAY ==
[2020-11-12 11:06] LABS: International Normalized Ratio 2.3; Prothrombin Time (Protime)PT. 24.2 SECONDS (11.7-14.9)
== END | disposition home or self-care (01) ==
LOC: LABSPEC 10:52
PROVIDERS: PCP Family Medicine; Visit Provider Family Medicine
DX: D68.51 Activated protein C resistance (principal); Z86.718 Personal history of other venous thrombosis and embolism
CPT/HCPCS: 85610

== ENCOUNTER 2022-11-15 09:50 | Observation (INO) | payer MEDICARE, SELFPAY ==
[2022-11-15] VITALS (8 sets, daily range): BP systolic 123–148; BP diastolic 55–68; PULSE 56–87; RESP 14–18; TEMP 35.9–36.6; O2SAT 93–99; BMI 30.1; BMI 30.4
--- NOTE | 2022-11-15 10:18 | EKG12_ITS ---
Test Reason : ABNORMAL LABS Blood Pressure : / mmHG Vent. 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
--- NOTE | 2022-11-15 10:19 | EDS_ITS ---
HPI History of Present Illness Chief Complaint: Abn Labs Narrative Narrative: Patient is a 77-year-old male who is presenting to the ER today with chief complaint of abnormal labs yesterday, high potassium was 6.9. Patient's BUN and creatinine were also elevated as well, BUN was 39, creatinine 1.67. Patient has no history of kidney disease. Patient's CO2 was 14. Patient has no history of kidney insufficiency, kidney disease. Patient does take blood pressure medication and water pills as well. Patient takes hydrochlorothiazide, lisinopril. Patient also takes Coumadin daily for history of PE. Patient has no recent traveling. Patient states his blood pressure was low last week, when he was at the [facility]. Patient did nothing about that, he went home and drink some water. Patient's had intermittent fatigue and weakness in the past couple weeks. Patient saw his PCP yesterday, outpatient labs were ordered along with echocardiogram and chest x-ray. I reviewed the results of patient's echocardiogram and chest x-ray. Patient's echocardiogram showed no acute findings, patient chest x-ray shows bilateral opacities lower lobes, no acute findings of infiltrate or any other acute abnormalities. Patient's ejection fraction was 57. Patient is asymptomatic at this time. Patient says that he has been having intermittent pain To the upper thoracic area for the past several weeks. Patient has no heavy lifting, twisting or turning. No other acute complaints. Short of breath at baseline, nothing new. Patient has no chest pain or shortness of breath. Patient says that he has not been short of breath recently, family states that he is typically. [facility] Medical History (Updated 11/15/22 @ 17:[address] Stephen Mix DO) Arthritis Barretts esophagus BPH (benign prostatic hyperplasia) DVT (deep venous thrombosis) Essential hypertension Gallstones GERD (gastroesophageal reflux disease) Heterozygous factor V Leiden mutation Hyperlipidemia Lumbar degenerative disc disease Myalgia and myositis, unspecified Non-smoker Obstructive sleep apnea Peripheral vertigo Primary osteoarthritis of both hips Pulmonary embolism Renal cyst, right Scaphoid fracture of wrist Varicose vein surgery Home Medications ezetimibe 10 mg tablet 10 mg PO DAILY CHOLESTROL 11/30/18 [History Last Taken Unknown] pantoprazole 20 mg tablet,delayed release 20 mg PO DAILY gerd 11/30/18 [History Last Taken Unknown] glucosamine sulfate 1,000 mg capsule 2,000 mg PO DAILY 11/23/20 [History Last Taken Unknown] vitamin B complex-folic acid 0.4 mg tablet 1 tab PO DAILY 02/24/20 [History Last Taken Unknown] meclizine 25 mg tablet 25 mg PO TID PRN dizziness #90 tabs 02/25/20 [Rx Last Taken Unknown] warfarin 2.5 mg tablet 2.5 mg PO DAILY FACTOR V 05/28/20 [History Last Taken Unknown] warfarin 4 mg tablet 5 mg PO .COMPLEX 05/28/20 [History Last Taken Unknown] amiloride 5 mg tablet 5 mg PO BID hypertension 11/15/22 [History Last Taken Unkn own] doxazosin 1 mg tablet 1 mg PO DAILY 11/15/22 [History Last Taken Unknown] losartan 100 mg tablet 100 mg PO DAILY bp 11/15/22 [History Last Taken Unknown] potassium 99 mg tablet 99 mg PO DAILY supplement 11/15/22 [History Last Taken Unknown] vit C-s.mavbah-dnyvjj-jwcyu sd PO DAILY gout 11/15/22 [History Last Taken Unknown] Allergy/AdvReac Type Severity Reaction Status Date / Time Penicillins Allergy Hives Verified 11/15/22 09:52 amlodipine AdvReac Unknown Swelling Verified 11/15/22 09:52 atenolol AdvReac Unknown Bradycardia Verified 11/15/22 09:52 fluticasone [From Flonase] AdvReac Unknown Headache Verified 11/15/22 09:52 Quyrnvk-SKX-LgX Reductase AdvReac Unknown Myalgia Verified 11/15/22 09:52 Inhibitor [Thsxagi-Bvo-Hnn Reductase Inhibitor] Family History Father Cancer Mother Malignant hyperthermia due to anesthesia CVA (cerebral vascular accident) Sister Breast cancer Daughter Bleeding disorder Factor V CVA (cerebral vascular accident) Cavernous sinus thrombosis Surgical History (Updated 11/15/22 @ 14:24 by Debi Stockton) H/O removal of cyst History of cholecystectomy Hx laparoscopic cholecystectomy Social History (Updated 05/28/20 @ 14:21 by Valerie Downey CORPORATE SECURITIES RESEARCH ANALYST, CORPORATE SECURITIES RESEARCH ANALYST-C) Smoking Status: Never smoker second hand exposure: No alcohol intake: former substance use type: does not use ROS ROS ED ROS Narrative REVIEW OF SYSTEMS: Unless otherwise stated in this report the patient's positive and negative responses for review of systems for constitutional, eyes, ENT, cardiovascular, respiratory, gastrointestinal, neurological, , musculoskeletal, and integument systems and related systems to the presenting problem are either stated in the history of present illness or were not pertinent or were negative for the symptoms and/or complaints related to the presenting medical problem. EXAM Physical Exam Narrative Exam Narrative: Vital signs reviewed and patient is not hypoxic. General: The patient appears well and in no apparent distress. Patient is resting comfortably on cart. Not toxic, lethargic, or listless. Skin: Warm, dry, no pallor noted. There is no rash noted. Head: Normocephalic, atraumatic Eye: Normal conjunctiva, no drainage, EOMI. PERRL. Ears, Nose, Mouth, and Throat: oral mucosa is moist. Nares patent. Mouth without vesicles. Cardiovascular: Regular Rate and Rhythm, no murmurs, gallops, or rubs Respiratory: Patient is in no distress, no accessory muscle use, lungs are clear to auscultation, no wheezing, rales or rhonchi Back: non-tender, patient has no tenderness palpation to the soft tissue to the bilateral upper thoracic spine, no rash, no CVA tenderness bilaterally to percussion. NO CTLS midline or paraspinal tenderness to palpation. GI: Soft, obese, no tenderness to palpation, no masses appreciated. No rebound, guarding, or rigidity noted. Musculoskeletal: The patient has full range of motion of all extremities and joints with no difficulty. Patient has no motor, no sensory deficits. Patient has no pitting edema to bilateral lower extremities. Neurological: A&O x4, normal speech, no focal neurological deficits. Psychiatric: Cooperative Const Vital Signs: 11/15/22 09:52 11/15/22 09:53 Temperature 97 F L Temperature Source Temporal Pulse Rate 64 Respiratory Rate 14 Respiratory Pattern Normal Blood Pressure 123/68 H Blood Pressure Mean 86 Pulse Ox 97 Oxygen Delivery Method Room Air [facility] Lab Data Attestation: I reviewed the patient's lab results. Labs: Laboratory Results - last 24 hr 11/15/22 10:30 PT 25.1 H INR 2.3 Sodium 133 L Potassium 6.2 H* Chloride 106 Carbon Dioxide 20.0 L Anion Gap 7 BUN 43 H Creatinine 1.62 H Estim Creat Clear Calc 36.94 Est GFR (MDRD) Af Amer 53 L Est GFR (MDRD) Non-Af 44 L BUN/Creatinine Ratio 26.5 H Glucose 100 Calcium 9.1 Magnesium 2.1 Troponin I High Sens 5 B-Natriuretic Peptide 10.8 EKG Initial EKG: Attestation: I personally reviewed and interpreted this EKG as follows: Comments: EKG interpretation. Normal sinus rhythm at 60 beats a minute. Normal axis deviation. No acute ST elevation, no acute ectopy. QTc 382. Questionable hyper peaked T waves Additional Tests and Interventions Additional Tests or Interventions: Patient's repeat potassium was elevated at 6.2. Patient's potassium was 6.9 yesterday. Patient was given IV fluids. Patient was given sodium bicarb, glucose, insulin, and albuterol aerosol. Patient will be admitted for elevation of BUN and creatinine along with elevated potassium. This is new for patient's history. Patient looks well. Patient is also asymptomatic. Patient does take a potassium supplement daily, but he has been doing this for months and months, nothing new. Patient has not taken any additional potassium tablets recently Patient was seen and evaluated by Dr. ePrdomo in the ER. Discharge Plan Dx/Rx/DC Orders Clinical Impression: MACK (acute kidney injury), Dehydration, Hyperkalemia Disposition Disposition: [facility] Discharge Date/Time: 11/15/22 14:00
[2022-11-15] MEDS: 0.9% Normal Saline 1,000 ML 1000 ML IV (10:39)
[2022-11-15 10:56] LABS: International Normalized Ratio 2.3; Prothrombin Time (Protime)PT. 25.1 SECONDS (11.7-14.9)
[2022-11-15 11:09] LABS: Anion Gap 7 (5-15); BUN 43 mg/dL (7-18); BUN/Creat Ratio 26.5 RATIO (10-20); Calcium,Total 9.1 mg/dL (8.5-10.1); Chloride 106 mmol/L (98-107); Creatinine, Serum 1.62 mg/dL (0.70-1.30); EST Glomerular Filtration Rate 44 mL/min (>60); Est Glom Filt Rate - Afr Amer 53 mL/min (>60); Estimated Creatinine Clearance 36.94 ml/min; Glucose 100 mg/dL (74-106); Magnesium 2.1 mg/dL (1.6-2.6); Potassium 6.2 mmol/L (3.5-5.1); Sodium Level 133 mmol/L (136-145); Troponin-I HS (w/2H Reflex) 5 pg/mL (3.0-78.0)
[2022-11-15 11:29] LABS: BNP,B-Type NATRIURETIC PEPTIDE 10.8 pg/mL (0-100)
[2022-11-15] MEDS: Albuterol 2.5 MG/3 ML VIAL.NEB. 10 MG INHALATION ×2 (12:20→22:34)
[2022-11-15 12:40] LABS: Reflex Troponin-HS? (from REC) Y
--- NOTE | 2022-11-15 12:42 | HP.PCM.HOS_ITS ---
HPI - General General Date of Admission: 11/15/22 Date of Service: 11/15/22 Chief Complaint: MACK, hyperkalemia HPI Narrative Jaydon Arguello is a 77-year-old male with history significant for hypertension, multiple DVTs/PEs with factor V Leiden mutation on warfarin, GERD and hyperlipidemia who presented to the [facility] ED on 11/15 at the request of his PCP for abnormal labs. Patient was seen at site, and daughter were present. Patient was sitting comfortably in bed, conversing normally, in no acute distress. Patient states that he has been on antihypertensive medications for the last 40 to 50 years, but within the last few months there have been multiple changes to his regimen. Patient noted last (11/10) that he was significantly lightheaded and dizzy at the [facility]. He took his blood pressure when he got home and noted that it was in the 70s over 50s. Checked his blood pressure a few more times over subsequent days and continued to have systolic pressures in the 80s to 90s. He continues to take his antihypertensives as prescribed. He is currently prescribed losartan 100 mg daily and amiloride 5 mg twice daily. Also prescribed doxazosin 1 mg daily. He was seen in his PCP office on 11/14 and was found on labs to have an MACK with creatinine of 1.67 as well as hyperkalemia with potassium of 6.9. Patient also had a chest x-ray and an echocardiogram done yesterday after his visit. The chest x-ray was normal, and per patient report the echocardiogram was also normal. In the ED, his EKG showed mild peaked T waves in the precordial leads but was otherwise benign. Repeat potassium in the ED was 6.3. He was temporized with calcium gluconate, dextrose, sodium bicarbonate and albuterol. Given his MACK, he was also given IV fluids. On my interview, patient denied any acute concerns. He was actually hoping to go home today. He and family do report that they are frustrated by some of the changes in his home medications and would like to get that sorted out prior to him going home. He has no other acute concerns at this time. [facility] Medical History (Updated 11/15/22 @ 17:[address] Stephen Mix DO) Arthritis Barretts esophagus BPH (benign prostatic hyperplasia) DVT (deep venous thrombosis) Essential hypertension Gallstones GERD (gastroesophageal reflux disease) Heterozygous factor V Leiden mutation Hyperlipidemia Lumbar degenerative disc disease Myalgia and myositis, unspecified Non-smoker Obstructive sleep apnea Peripheral vertigo Primary osteoarthritis of both hips Pulmonary embolism Renal cyst, right Scaphoid fracture of wrist Varicose vein surgery Home Medications ezetimibe 10 mg tablet 10 mg PO DAILY CHOLESTROL 11/30/18 [History Last Taken Unknown] pantoprazole 20 mg tablet,delayed release 20 mg PO DAILY gerd 11/30/18 [History Last Taken Unknown] glucosamine sulfate 1,000 mg capsule 2,000 mg PO DAILY 02/24/20 [History Last Taken Unknown] vitamin B complex-folic acid 0.4 mg tablet 1 tab PO DAILY 02/24/20 [History Last Taken Unknown] meclizine 25 mg tablet 25 mg PO TID PRN dizziness #90 tabs 02/25/20 [Rx Last Taken Unknown] warfarin 2.5 mg tablet 2.5 mg PO DAILY FACTOR V 05/28/20 [History Last Taken Unknown] warfarin 4 mg tablet 5 mg PO .COMPLEX 05/28/20 [History Last Taken Unknown] amiloride 5 mg tablet 5 mg PO BID hypertension 11/15/22 [History Last Taken Unknown] doxazosin 1 mg tablet 1 mg PO DAILY 11/15/22 [History Last Taken Unknown] losartan 100 mg tablet 100 mg PO DAILY bp 11/15/22 [History Last Taken Unknown] potassium 99 mg tablet 99 mg PO DAILY supplement 11/15/22 [History Last Taken Unknown] vit C-s.lsbsri-glmsmw-ndpmk sd PO DAILY gout 11/15/22 [History Last Taken Unknown] Allergy/AdvReac Type Severity Reaction Status Date / Time Penicillins Allergy Hives Verified 11/15/22 09:52 amlodipine AdvReac Unknown Swelling Verified 11/15/22 09:52 atenolol AdvReac Unknown Bradycardia Verified 11/15/22 09:52 fluticasone [From Flonase] AdvReac Unknown Headache Verified 11/15/22 09:52 Ycaqasn-LBD-LoA Reductase AdvReac Unknown Myalgia Verified 11/15/22 09:52 Inhibitor [Tsyxopi-Tor-Qag Reductase Inhibitor] Family History Father Cancer Mother Malignant hyperthermia due to anesthesia CVA (cerebral vascular accident) Sister Breast cancer Daughter Bleeding disorder Factor V CVA (cerebral vascular accident) Cavernous sinus thrombosis Surgical History (Updated 11/15/22 @ 14:24 by Debi Stockton) H/O removal of cyst History of cholecystectomy Hx laparoscopic cholecystectomy Social History (Updated 05/28/20 @ 14:21 by Valerie Downey NP, STOCK FITTER-C) Smoking Status: Never smoker second hand exposure: No alcohol intake: former substance use type: does not use ROS Constitutional Constitutional: Reports change in weight; Denies chills, fatigue, fever(s), night sweats or weakness Eyes Eyes: Denies change in vision Cardiovascular Cardiovascular: Denies chest pain, dyspnea on exertion, edema, lightheadedness or palpitations Respiratory/Chest Respiratory/Chest: Denies cough Gastrointestinal Gastrointestinal: Denies abdominal pain, constipation, diarrhea, nausea or vomiting Genitourinary Genitourinary: Denies dysuria Musculoskeletal Musculoskeletal: Denies arthralgias or myalgias Endocrine Endocrinology: Denies cold intolerance, heat intolerance, polydipsia or polyuria Vital Signs Vital Signs Vital Signs: 11/15/22 09:52 11/15/22 09:53 11/15/22 12:02 Temperature 97 F L Temperature Source Temporal Pulse Rate 64 59 L Respiratory Rate 14 18 Respiratory Pattern Normal Blood Pressure 123/68 H Blood Pressure Mean 86 Pulse Ox 97 97 Oxygen Delivery Method Room Air Room Air 11/15/22 12:21 Temperature Temperature Source Pulse Rate 56 L Respiratory Rate 18 Respiratory Pattern Normal Blood Pressure Blood Pressure Mean Pulse Ox Oxygen Delivery Method Weight Weight: 89.811 kg Body Mass Index (BMI) 30.1 Physical Exam Const alert, oriented x3, no apparent distress, average body habitus, healthy appearing and well nourished Constitutional Narrative: Pleasant elderly male, sitting comfortably in bed, conversing normally, no acute distress. General Appearance: cooperative, comfortable, well kempt and well developed HEENT normocephalic, head/scalp atraumatic, hearing grossly normal bilaterally, nasal mucous membranes and turbinates normal and moist oral mucous membranes Eyes PERRL, EOMs intact bilaterally and conjunctivae normal Neck full ROM, no lymphadenopathy and supple Lymph Lymphatic: no lymphadenopathy noted Chest inspection of chest normal Resp normal respiratory effort, normal air movement, no use of accessory muscles and clear to auscultation bilaterally Cardio regular rate, regular rhythm, no murmurs and peripheral pulses 2+ throughout GI normal to inspection, nondistended, normoactive bowel sounds, soft to palpation, non-tender and non-distended Back/Spine normal ROM Extremity normal to inspection, full ROM and no pedal edema Skin no rashes or lesions noted Psych mental status grossly normal Results Lab / Micro Data 11/15/22 10:30 Labs: Laboratory Results - last 24 hr 11/15/22 10:30: PT 25.1 H, INR 2.3, Sodium 133 L, Potassium 6.2 H*, Chloride 106, Carbon Dioxide 20.0 L, Anion Gap 7, BUN 43 H, Creatinine 1.62 H, Estim Creat Clear Calc 36.94, Est GFR (MDRD) Af Amer 53 L, Est GFR (MDRD) Non-Af 44 L, BUN/Creatinine Ratio 26.5 H, Glucose 100, Calcium 9.1, Magnesium 2.1, Troponin I High Sens 5, B-Natriuretic Peptide 10.8 Assessment & Plan Assessment/Plan (1) Hyperkalemia: (2) MACK (acute kidney injury): (3) HTN (hypertension): (4) Factor 5 Leiden mutation, heterozygous: PLAN: Plan Patient is a 77-year-old male with history significant for hypertension, multiple DVT/PE with factor V Leiden on warfarin and GERD who presented to the [facility] ED on 11/15 for abnormal labs. 1. Hyperkalemia Likely secondary to MACK as noted below, and worsened by his home losartan. No prior history of hyperkalemia. EKG in the ED showed mild peaked T waves in the precordial leads, was otherwise benign. Potassium of 6.3 in the ED, temporized at that time. -Treating MACK as below. We will recheck potassium later tonight and again tomorrow morning and temporize as needed. Holding home losartan as noted below. 2. MACK Suspect patient may have some degree of ATN secondary to intermittent low blood pressures that he noted over the past 4 to 5 days. Lower suspicion for obstructive etiology as patient reports good urination. Seems that the etiology of his hypotension was likely overmedication. Was able to view patient's echocardiogram done yesterday and it showed an ejection fraction of 57% and no acute cardiac abnormalities. Creatinine 1.62 on admission, baseline appears to be around 1. Given 1 L of IV fluids in the ED. -We will obtain urine sodium and creatinine to calculate FeNa. Renal bladder ultrasound ordered to rule out obstructive etiology. Repeat BMP tomorrow morning. Encouraged p.o. hydration. 3. Hypertension Home medications of losartan 100 mg daily and amiloride 5 mg twice daily. Patient family noted some changes to this regimen over the past several months. Was previously on lisinopril, but this was discontinued due to cough. Was on spironolactone but this was discontinued due to breast bud enlargement. Was on hydrochlorothiazide at one point, unclear as to why this was discontinued. -Hold home losartan and amiloride. Monitor BMP. Will discuss home-going r egimen on discharge. 4. History of DVT/PE with factor V Leiden -Continue home warfarin. 5. GERD -Continue home pantoprazole DVT prophylaxis: Warfarin CODE STATUS: Full code, verified Expected disposition: Home, likely tomorrow Total clinical time spent by myself addressing the patient's medical issues, reviewing all the data, and collaborating with patient's care team: 55 minutes. Charges/Coding Visit Charges Inpatient E&M: 86981 Init Hosp L2
[2022-11-15] MEDS: Dextrose 50%-Water 25 GM/50 ML DISP.SYRIN IV ×2 (12:49→21:48)
[2022-11-15] MEDS: Calcium Gluconate IV 3 GM in Syringe 1 EACH IV (12:49)
[2022-11-15] MEDS: Sodium Bicarbonate 8.4% 50 ML Syringe 50 MEQ IV (12:49)
[2022-11-15] MEDS: Insulin Lispro 10 UNIT in Syringe 0 ML 6 UNIT IV ×2 (12:49→21:32)
[2022-11-15 13:43] LABS: Troponin-I HS 5 pg/mL (3.0-78.0)
--- NOTE | 2022-11-15 19:34 | US_ITS ---
INDICATION: r/o hydronephrosis EXAMINATION: Ultrasound US Kidney(s) complete (eg, kidneys and bladder) COMPARISON: None. FINDINGS: 94 grayscale ultrasound images of the kidneys and urinary bladder. KIDNEYS: Bilateral kidneys without shadowing nephrolith or hydronephrosis.] Bilateral circumscribed nearly anechoic lesions with increased through transmission measuring up to 2.3 cm on the left and 7.5 cm on the right. Prominent column of Nahid/dromedary hump seen on the left, without definite mass. URINARY BLADDER:?Adequately distended urinary bladder is without obvious abnormality, 214 cc volume. Bilateral ureteral jets are identified. There may be right perinephric fluid free fluid. US/Kidney and Bladder IMPRESSION: No hydronephrosis. Possible right perinephric fluid. Multiple additional bilateral likely renal cysts. Electronically Signed: Jesus Canales MD at 23:03 EDT ,
[2022-11-15 20:09] LABS: Absolute Lymphocyte Count 1.75 X10^3/uL (0.83-4.51); Basophil# 0.04 X10^3/uL; Basophil% 0.5 % (0-1); Eosinophil# 0.14 X10^3/uL; Eosinophils% 1.8 % (0-5); Hematocrit 42.8 % (40-54); Hemoglobin 13.9 g/dL (13.0-16.5); Lymphocyte # 1.75 X10^3/ul (0.83-4.51); Lymphocyte % 22.4 % (19-41); Mean Corp Hgb Conc 32.5 g/dL (32-36); Mean Corpuscular Hgb 31.1 pg (27.0-32.0); Mean Corpuscular Volume 95.7 fL (80-94); Mean Platelet Vol. 8.6 fl (6.2-12.0); Monocyte# 0.87 X10^3/uL; Monocyte% 11.1 % (0-10); NRBC Flagged by Analyzer 0 % (0-5); Neutrophil # 4.99 X10^3/uL (2.7-7.7); Neutrophil % 63.8 % (47-70); Platelet Count 265 K/mm3 (150-450); RBC Distribution Width CV 12.9 % (11.6-14.6); RBC Distribution Width SD 45.6 fl (35.1-43.9); Red Blood Count 4.47 M/mm3 (4.6-6.2); White Blood Count 7.8 K/mm3 (4.4-11.0)
[2022-11-15 20:50] LABS: AST(SGOT) 40 U/L (15-37); Alanine Aminotransfer ALT/SGPT 55 U/L (16-61); Alkaline Phosphatase 58 U/L (45-117); Anion Gap 6 (5-15); BUN 37 mg/dL (7-18); BUN/Creat Ratio 26.2 RATIO (10-20); Bilirubin, Direct 0.11 mg/dL (0.00-0.30); Calcium,Total 8.9 mg/dL (8.5-10.1); Chloride 110 mmol/L (98-107); Creatinine, Serum 1.41 mg/dL (0.70-1.30); EST Glomerular Filtration Rate 52 mL/min (>60); Est Glom Filt Rate - Afr Amer 63 mL/min (>60); Estimated Creatinine Clearance 42.45 ml/min; Glucose 114 mg/dL (74-106); Potassium 6.1 mmol/L (3.5-5.1); Sodium Level 137 mmol/L (136-145)
[2022-11-15] MEDS: 0.45% Normal Saline 1,000 ML 100 ML IV (21:29)
[2022-11-15 21:32] LABS: Bedside Glucose 114 mg/dL (74-106)
[2022-11-15] MEDS: Calcium Gluconate 1 GM/10 ML Vial IVP (21:37)
[2022-11-15] MEDS: Sodium Polystyrene Sulfonate 15 GM/60 ML UDC 30 GM PO (21:48)
[2022-11-15] MEDS: 0.9% Saline Lock 10 ML Syringe IV (21:49)
[2022-11-15 22:16] LABS: Bacteria 0 SEEN /hpf (None Seen); Mucous, Urine 0 SEEN /hpf (<or=2+); Red Blood Cells-Urine 0 SEEN /hpf (0-5); Squamous Epithelial Cells - UA 0 SEEN /hpf (0-5); White Blood Cells 0 SEEN /hpf (0-5)
[2022-11-15 22:21] LABS: Color, Urine Yellow (Yellow); Glucose, Dipstick Normal (Normal); Ketone-Dipstick Negative (Negative); Leukocyte Esterase-Dipstick Negative /ul (Negative); Nitrite-Dipstick Negative (Negative); Occult Blood-Urine Negative /ul (Negative); Protein-Dipstick Negative (Negative); Specific Gravity, Urine 1.015 (1.002-1.030); Urine Bilirubin Dipstick Negative (Negative); Urine Clarity Clear (Clear); Urine Urobilinogen Normal (Normal)
[2022-11-15 22:36] LABS: Protein, Urine (Random) < 6.0 mg/dL (<11.9)
[2022-11-15 22:37] LABS: Urine Sodium 110 mmol/L (Not Establ.)
[2022-11-15] MEDS: Polyethylene Glycol 3350 17 GM PACKET PO (23:46)
[2022-11-16 00:07] LABS: Bedside Glucose 110 mg/dL (74-106)
[2022-11-16 05:48] VITALS: BP 133/71; PULSE 56; RESP 16; TEMP 36.8; O2SAT 98
[2022-11-16] MEDS: 0.45% Normal Saline 1,000 ML 100 ML IV (06:21)
[2022-11-16 06:54] LABS: Anion Gap 7 (5-15); BUN 35 mg/dL (7-18); BUN/Creat Ratio 27.6 RATIO (10-20); Calcium,Total 8.7 mg/dL (8.5-10.1); Chloride 107 mmol/L (98-107); Creatinine, Serum 1.27 mg/dL (0.70-1.30); EST Glomerular Filtration Rate 58 mL/min (>60); Est Glom Filt Rate - Afr Amer 71 mL/min (>60); Estimated Creatinine Clearance 47.13 ml/min; Glucose 103 mg/dL (74-106); Potassium 5.4 mmol/L (3.5-5.1); Sodium Level 135 mmol/L (136-145)
[2022-11-16] MEDS: Pantoprazole Sodium 20 MG Tablet PO (09:53)
[2022-11-16] MEDS: Ezetimibe 10 MG Tablet PO (09:53)
[2022-11-16 11:48] VITALS: BP 137/72; PULSE 69; RESP 16; TEMP 36.3; O2SAT 98
--- NOTE | 2022-11-16 11:50 | CASEMGMT ---
?Met with patient to complete ROSA form. ROSA form explained to patient who voiced understanding and signed form. Original form placed in pt?s chart and copy provided to patient. Ev Nash, Discharge Planning Asst. ?
[2022-11-16 13:08] LABS: Anion Gap 7 (5-15); BUN 28 mg/dL (7-18); BUN/Creat Ratio 22.2 RATIO (10-20); Calcium,Total 8.4 mg/dL (8.5-10.1); Chloride 107 mmol/L (98-107); Creatinine, Serum 1.26 mg/dL (0.70-1.30); EST Glomerular Filtration Rate 59 mL/min (>60); Est Glom Filt Rate - Afr Amer 71 mL/min (>60); Glucose 120 mg/dL (74-106); Potassium 5.1 mmol/L (3.5-5.1); Sodium Level 131 mmol/L (136-145)
--- NOTE | 2022-11-16 14:06 | DCINST_ITS ---
Discharge Instructions Diet Discharge Diet: No restrictions Activity Discharge Activity: Return to Normal Activity Weight Bearing Status: Full weight bearing Follow Up Care Please Follow Up With: Stephen Lopez MD When: 1-2 weeks Test Results: Test results from this visit will be discussed in further detail at your follow- up appointment, if applicable. Pending Tests Upon Discharge: none Discharge Plan Admission Admit Date/Time: 11/15/22 11:51 Primary Reason for Your Visit: hyperkalemia, MACK Attending Provider: Mikel Perdomo Primary Care Provider: Stephen Lopez Instructions Additional Instructions / Restrictions: Please hold your home amiloride and losartan for now. Please follow-up with your primary care doctor in 1 to 2 weeks and have a repeat BMP drawn at that time to check your potassium level. Can then discuss at that time whether or not to restart any antihypertensive medications. Discharge Orders/Prescriptions Prescriptions: Continued glucosamine sulfate 1,000 mg capsule 2,000 mg PO DAILY Rx Instructions: administer with meals vitamin B complex-folic acid 0.4 mg tablet 1 tab PO DAILY meclizine 25 mg tablet 25 mg PO TID PRN (Reason: dizziness) Qty: 90 2RF warfarin 4 mg tablet 5 mg PO .COMPLEX Patient Comments: take 5 mg on Mondays and Rx Instructions: 5 mg orally; Take Monday, Monday, Monday ezetimibe 10 MG tablet 10 mg PO DAILY pantoprazole 20 MG tablet 20 mg PO DAILY warfarin 2.5 mg tablet 2.5 mg PO DAILY Rx Instructions: 5mg Monday/. 2.5mg all other days doxazosin 1 mg tablet 1 mg PO DAILY Patient Comments: TAKE 1 TABLET BY MOUTH EVERY DAY vit C-s.kxlugy-piwvux-sahsa sd [Tart Collier] PO DAILY Discontinued amiloride 5 mg tablet 5 mg PO BID Patient Comments: TAKE 1 TABLET BY MOUTH TWICE A DAY losartan 100 mg tablet 100 mg PO DAILY Patient Comments: TAKE 1 TABLET BY MOUTH TWICE A DAY potassium 99 mg tablet 99 mg PO DAILY Referrals / Follow Up: Stephen Lopez MD [Primary Care Provider] - Disposition Disposition (needs filled in before D/C Order can be placed): Home, Self Care
[2022-11-16 14:09] VITALS: BP 137/72; PULSE 69; RESP 16; TEMP 36.3; O2SAT 98
--- NOTE | 2022-11-16 14:09 | DS.PCM_ITS ---
Providers Date of Admission: 11/15/22 Date of Discharge: 11/16/22 Primary Care Physician: Dr. Stephen Lopez MD Reason For Visit: HYPERKALEMIA Diagnosis Discharge Diagnosis (1) Hyperkalemia: Status: Resolved Code(s): E87.5 - Hyperkalemia (2) MACK (acute kidney injury): Status: Deleted Code(s): N17.9 - Acute kidney failure, unspecified (3) HTN (hypertension): Status: Chronic Code(s): I10 - Essential (primary) hypertension (4) Factor 5 Leiden mutation, heterozygous: Status: Chronic Code(s): D68.51 - Activated protein C resistance Medications at Discharge Home Medications ezetimibe 10 mg tablet 10 mg PO DAILY CHOLESTROL 11/30/18 pantoprazole 20 mg tablet,delayed release 20 mg PO DAILY gerd 11/30/18 glucosamine sulfate 1,000 mg capsule 2,000 mg PO DAILY 02/24/20 vitamin B complex-folic acid 0.4 mg tablet 1 tab PO DAILY 02/24/20 meclizine 25 mg tablet 25 mg PO TID PRN dizziness #90 tabs 02/25/20 warfarin 2.5 mg tablet 2.5 mg PO DAILY FACTOR V 05/28/20 warfarin 4 mg tablet 5 mg PO .COMPLEX 05/28/20 doxazosin 1 mg tablet 1 mg PO DAILY prostate 11/15/22 vit C-s.gykxhu-yuyltj-sgysn sd PO DAILY gout 11/15/22 Hospital Course Operations None Procedures EKG and - (Renal ultrasound) Summary of Care Provided Minutes Spent on Discharge: 38 Hospital Course: Patient is a 77-year-old male with history significant for hypertension, multiple DVT/PE with factor V Leiden on warfarin and GERD who presented to the [facility] ED on 11/15 for abnormal labs. Short hospital course as noted below. Hyperkalemia: Suspected secondary to MACK as noted below, and worsened by his home losartan. No prior history of hyperkalemia. Potassium 6.3 in the ED, temporized at that time. EKG in the ED showed mildly peaked T waves in the precordial leads, was otherwise benign. On multiple rechecks, potassium trended down to 5.1 prior to discharge. Held home losartan on discharge as noted below, with plan to recheck BMP in 5 to 7 days followed by an outpatient appointment with his PCP. MACK: Suspected that patient had a degree of ATN secondary to intermittent low blood pressures that he noted over the previous 4 to 5 days prior to admission. Seem to that the etiology of his hypotension was likely overmedication. Patient notably had an echocardiogram done the day prior to admission that showed an EF of 57%, no acute cardiac abnormalities. Creatinine 1.62 on admit, baseline creatinine around 1. Creatinine proved to 1.2 with IV fluid administration. Renal bladder ultrasound showed no obstructive etiology. Patient had good urine output throughout hospital course. Discharged home with plan to recheck BMP in 5 to 7 days as noted above. Hypertension: Home medications of losartan 100 mg daily and amiloride 5 mg twice daily. Patient family noted some changes to this regimen over the past several months. Was previously on lisinopril, but this was discontinued due to cough. Was on spironolactone but this was discontinued due to breast bud enlargement. Was on hydrochlorothiazide at one point, unclear as to why this was discontinued. Held home medications losartan and amiloride on discharge, with plan for close outpatient follow-up with PCP. Discharge diagnoses: ? Hyperkalemia, resolved ? MACK, improved ? Hypertension ? History of DVT/PE with factor V Leiden on warfarin ? GERD Total clinical time spent by myself addressing the patient's discharge needs: 38 minutes. Physical Exam Const alert, oriented x3, no apparent distress, average body habitus, healthy appea ring and well nourished Constitutional Narrative: Pleasant elderly male, sitting comfortably in bed, conversing normally, no acute distress. General Appearance: cooperative, comfortable, well kempt and well developed HEENT normocephalic, head/scalp atraumatic, hearing grossly normal bilaterally, nasal mucous membranes and turbinates normal and moist oral mucous membranes Eyes PERRL, EOMs intact bilaterally and conjunctivae normal Neck full ROM, no lymphadenopathy and supple Lymph Lymphatic: no lymphadenopathy noted Chest inspection of chest normal Resp normal respiratory effort, normal air movement, no use of accessory muscles and clear to auscultation bilaterally Cardio regular rate, regular rhythm, no murmurs and peripheral pulses 2+ throughout GI normal to inspection, nondistended, normoactive bowel sounds, soft to palpation, non-tender and non-distended Back/Spine normal ROM Extremity normal to inspection, full ROM and no pedal edema Skin no rashes or lesions noted Psych mental status grossly normal Weight / BMI Weight Weight: 90.7 kg Body Mass Index (BMI) 30.4 ABG / Lab / Microbiology Data 11/15/22 20:03 11/16/22 12:15 Laboratory: Laboratory Results - last 24 hr 11/15/22 20:03: WBC 7.8, RBC 4.47 L, Hgb 13.9, Hct 42.8, MCV 95.7 H, MCH 31.1, MCHC 32.5, RDW Std Deviation 45.6 H, RDW Coeff of Oje 12.9, Plt Count 265, MPV 8.6, Immature Gran % (Auto) 0.400, Neut % (Auto) 63.8, Lymph % (Auto) 22.4, [place] % (Auto) 11.1 H, Eos % (Auto) 1.8, Baso % (Auto) 0.5, Absolute Neuts (auto) 5.0, Absolute Lymphs (auto) 1.75, Nucleated RBC % 0, Sodium 137, Potassium 6.1 H*, Chloride 110 H, Carbon Dioxide 21.0, Anion Gap 6, BUN 37 H, Creatinine 1.41 H, Estim Creat Clear Calc 42.45, Est GFR (MDRD) Af Amer 63, Est GFR (MDRD) Non-Af 5 2 L, BUN/Creatinine Ratio 26.2 H, Glucose 114 H, Calcium 8.9, Total Bilirubin 0.30, Direct Bilirubin 0.11, AST 40 H, ALT 55, Alkaline Phosphatase 58, Total Protein 7.0, Albumin 3.0 L, Globulin 4.0 11/15/22 21:13: POC Glucose 114 H 11/15/22 22:05: Urine Color Yellow, Urine Clarity Clear, Urine pH 5.0, Ur Specific [place] 1.015, Urine Protein Negative, Urine Glucose (UA) Normal, Urine Ketones Negative, Urine Occult Blood Negative, Urine Nitrite Negative, Urine Bilirubin Negative, Urine Urobilinogen Normal, Ur Leukocyte Esterase Negative, Urine RBC 0 SEEN, Urine WBC 0 SEEN, Ur Squamous Epith Cells 0 SEEN, Urine Bacteria 0 SEEN, Urine Mucus 0 SEEN, U Random Total Protein < 6.0, Ur Random Sodium 110, Urine Creatinine 109.00 11/15/22 22:05: Urine Creatinine 110.00, Protein/Creatinin Ratio TNP 11/15/22 23:45: POC Glucose 110 H 11/16/22 05:56: Sodium 135 L, Potassium 5.4 H, Chloride 107, Carbon Dioxide 21.0, Anion Gap 7, BUN 35 H, Creatinine 1.27, Estim Creat Clear Calc 47.13, Est GFR (MDRD) Af Amer 71, Est GFR (MDRD) Non-Af 58 L, BUN/Creatinine Ratio 27.6 H, Glucose 103, Calcium 8.7 11/16/22 12:15: Sodium 131 L, Potassium 5.1, Chloride 107, Carbon Dioxide 17.0 L , Anion Gap 7, BUN 28 H, Creatinine 1.26, Estim Creat Clear Calc 47.50, Est GFR (MDRD) Af Amer 71, Est GFR (MDRD) Non-Af 59 L, BUN/Creatinine Ratio 22.2 H, Glucose 120 H, Calcium 8.4 L Radiography Diagnostic Testing: Radiology Impression Renal Ultrasound 11/15/22 19:34 IMPRESSION: No hydronephrosis. Possible right perinephric fluid. Multiple additional bilateral likely renal cysts. Electronically Signed: Jesus Canales MD at 23:03 EDT , D/C Instructions Discharge Diet: No restrictions Weight Bearing Status: Full weight bearing Pending Tests Upon Discharge: none Please Follow Up With: Stephen Lopez MD When: 1-2 weeks Meaningful Use Info Meaningful Use Diagnoses (Choose all that apply): None applicable Discharge Plan Admission Admit Date/Time: 11/15/22 11:51 Primary Reason for Your Visit: hyperkalemia, MACK Attending Provider: Mikel Perdomo Primary Care Provider: Stephen Lopez Instructions Additional Instructions / Restrictions: Please hold your home amiloride and losartan for now. Please follow-up with your primary care doctor in 1 to 2 weeks and have a repeat BMP drawn at that time to check your potassium level. Can then discuss at that time whether or not to restart any antihypertensive medications. Discharge Orders/Prescriptions Prescriptions: Continued glucosamine sulfate 1,000 mg capsule 2,000 mg PO DAILY Rx Instructions: administer with meals vitamin B complex-folic acid 0.4 mg tablet 1 tab PO DAILY meclizine 25 mg tablet 25 mg PO TID PRN (Reason: dizziness) Qty: 90 2RF warfarin 4 mg tablet 5 mg PO .COMPLEX Patient Comments: take 5 mg on Mondays and Rx Instructions: 5 mg orally; Take Monday, Monday, Monday ezetimibe 10 MG tablet 10 mg PO DAILY pantoprazole 20 MG tablet 20 mg PO DAILY warfarin 2.5 mg tablet 2.5 mg PO DAILY Rx Instructions: 5mg Monday/. 2.5mg all other days doxazosin 1 mg tablet 1 mg PO DAILY Patient Comments: TAKE 1 TABLET BY MOUTH EVERY DAY vit C-s.ubgbmd-wvszfc-wlbwq sd [Tart Collier] PO DAILY Discontinued amiloride 5 mg tablet 5 mg PO BID Patient Comments: TAKE 1 TABLET BY MOUTH TWICE A DAY losartan 100 mg tablet 100 mg PO DAILY Patient Comments: TAKE 1 TABLET BY MOUTH TWICE A DAY potassium 99 mg tablet 99 mg PO DAILY Referrals / Follow Up: Stephen Lopez MD [Primary Care Provider] - Disposition Disposition (needs filled in before D/C Order can be placed): Home, Self Care Charges/Coding Visit Charges Inpatient E&M: 71528 Disch Hosp >30min
--- NOTE | 2022-11-16 14:35 | PHA.DC.MR.R ---
Pharmacy [place] Med Reconciliation Pharmacy Service has performed discharge medication reconciliation for this patient. The patient's discharge medication list was reviewed for discrepancies and discrepancies were resolved. Medications at Discharge Home Medications ezetimibe 10 mg tablet 10 mg PO DAILY CHOLESTROL 11/30/18 pantoprazole 20 mg tablet,delayed release 20 mg PO DAILY gerd 11/30/18 glucosamine sulfate 1,000 mg capsule 2,000 mg PO DAILY 02/24/20 vitamin B complex-folic acid 0.4 mg tablet 1 tab PO DAILY 02/24/20 meclizine 25 mg tablet 25 mg PO TID PRN dizziness #90 tabs 02/25/20 warfarin 2.5 mg tablet 2.5 mg PO DAILY FACTOR V 05/28/20 warfarin 4 mg tablet 5 mg PO .COMPLEX 05/28/20 doxazosin 1 mg tablet 1 mg PO DAILY 11/15/22 vit C-s.mqtzba-jfijeb-kcovz sd PO DAILY gout 11/15/22
--- NOTE | 2022-11-16 15:10 | CASEMGMT ---
Patient has order for discharge. RN CM in to discuss needs at discharge. Patient denies needs at discharge. Patient had no further questions or concerns at this time.
== END 2022-11-16 14:09 | disposition home or self-care (01) ==
LOC: ED 10:39 → PCU 13:24
PROVIDERS: Admitting Provider Hospitalist; Emergency Provider Emergency Medicine; PCP Family Medicine; Visit Provider Hospitalist
DX: E78.5 Hyperlipidemia, unspecified (principal); N17.9 Acute kidney failure, unspecified; D68.51 Activated protein C resistance; E86.0 Dehydration; E87.5 Hyperkalemia; I10 Essential (primary) hypertension; G47.33 Obstructive sleep apnea (adult) (pediatric); N40.0 Benign prostatic hyperplasia without lower urinary tract symptoms; Z86.711 Personal history of pulmonary embolism; Z86.718 Personal history of other venous thrombosis and embolism; K21.9 Gastro-esophageal reflux disease without esophagitis; Z79.899 Other long term (current) drug therapy; Z79.01 Long term (current) use of anticoagulants; Z87.891 Personal history of nicotine dependence
CPT/HCPCS: 36415; 76770; 80048; 80076; 81001; 82570; 82962; 83735; 83880; 84156; 84300; 84484; 85025; 85610; 93005; 94640; 96361; 96365; 96366; 99221; 99285; J7030; A4216; G0378; J0612

== ENCOUNTER 2023-06-20 13:11 | Observation (INO) | payer MEDICARE, SELFPAY ==
[2023-06-20] VITALS (13 sets, daily range): BP systolic 107–167; BP diastolic 50–71; PULSE 53–61; RESP 12–25; TEMP 36.3–36.9; O2SAT 2–98; BMI 27.1; BMI 31.0
--- NOTE | 2023-06-20 14:17 | EKG12_ITS ---
Test Reason : PASSED OUT Blood Pressure : / mmHG Vent. Rate : 054 BPM Atrial Rate : 054 BPM P-R Int : 150 ms QRS Dur : 088 ms QT Int : 448 ms P-R-T Axes : 029 -02 025 degrees QTc Int : 424 ms Sinus bradycardia Otherwise normal ECG Confirmed by Jose Michelle ([id number]), newspaper or periodical editor CALVIN YEUNG ([id number]) on 06/22/2023 11:02:23 AM Referred By: [facility]PHYS Confirmed By:Jose Michelle
--- NOTE | 2023-06-20 14:18 | EX.ED.DYSGE1 ---
HPI History of Present Illness Chief Complaint: Syncope Informant: patient Onset/Context/Timing Onset: Today Narrative Narrative: Patient presents via EMS secondary to syncope. Patient was working out at [employer] this morning. He states he just finished using a machine that worked the back of his arms when he developed pain across his shoulders. He had a brief syncopal episode and woke up on the ground. During transport with EMS patient had a near syncopal episode and felt nauseated, but those symptoms resolved. At this time he states he feels near his baseline. He denies having chest pain or palpitations. No headache. He did just recently have eye surgery and was cleared today to go back to exercise. He is on Coumadin for history of DVT and PE, but did not have to stop his anticoagulants for his surgery. [facility] Medical History Arthritis Barretts esophagus BPH (benign prostatic hyperplasia) DVT (deep venous thrombosis) Essential hypertension Gallstones GERD (gastroesophageal reflux disease) Heterozygous factor V Leiden mutation Hyperlipidemia Lumbar degenerative disc disease Myalgia and myositis, unspecified Non-smoker Obstructive sleep apnea Peripheral vertigo Primary osteoarthritis of both hips Pulmonary embolism Renal cyst, right Scaphoid fracture of wrist Varicose vein surgery Home Medications ezetimibe 10 mg tablet 10 mg PO DAILY CHOLESTROL 11/30/18 [History Last Taken Unknown] pantoprazole 20 mg tablet,delayed release 20 mg PO DAILY gerd 11/30/18 [History Last Taken Unknown] glucosamine sulfate 1,000 mg capsule 2,000 mg PO DAILY 02/24/20 [History Last Taken Unknown] vitamin B complex-folic acid 0.4 mg tablet 1 tab PO DAILY 02/24/20 [History Last Taken Unknown] meclizine 25 mg tablet 25 mg PO TID PRN dizziness #90 tabs 02/25/20 [Rx Last Taken Unknown] warfarin 2.5 mg tablet 2.5 mg PO DAILY FACTOR V 05/28/20 [History Last Taken Unknown] warfarin 4 mg tablet 5 mg PO .COMPLEX 05/28/20 [History Last Taken Unknown] doxazosin 1 mg tablet 1 mg PO DAILY prostate 11/15/22 [History Last Taken Unknown] vit C-s.edlxbr-rolqtf-qexsc sd PO DAILY gout 11/15/22 [History Last Taken Unknown] Allergy/AdvReac Type Severity Reaction Status Date / Time Penicillins Allergy Hives Verified 06/20/23 13:20 amlodipine AdvReac Unknown Swelling Verified 06/20/23 13:20 atenolol AdvReac Unknown Bradycardia Verified 06/20/23 13:20 fluticasone [From Flonase] AdvReac Unknown Headache Verified 06/20/23 13:20 Dlxsqru-IYN-WiM Reductase AdvReac Unknown Myalgia Verified 06/20/23 13:20 Inhibitor [Glwpurw-Hqd-Mwr Reductase Inhibitor] Family History Father Cancer Mother Malignant hyperthermia due to anesthesia CVA (cerebral vascular accident) Sister Breast cancer Daughter Bleeding disorder Factor V CVA (cerebral vascular accident) Cavernous sinus thrombosis Surgical History H/O removal of cyst History of cholecystectomy Hx laparoscopic cholecystectomy Social History Smoking Status: Never smoker second hand exposure: No alcohol intake: former substance use type: does not use ROS ROS ED Constitutional Constitutional ED: Denies chills or fever(s) Eyes Eyes: Denies change in vision or discharge from eye(s) ENT ENT ED: Denies discharge from eye(s), rhinorrhea or sore throat Cardiovascular Cardiovascular: Denies chest pain or palpitations Respiratory/Chest Respiratory/Chest: Denies cough or dyspnea Gastrointestinal Gastrointestinal: Denies abdominal pain, nausea or vomiting Genitourinary Genitourinary ED: Denies difficulty urinating or dysuria Musculoskeletal Musculoskeletal: Reports back pain and extremity pain Integumentary Denies Abrasions or rash Neurologic Neurologic: Denies headache(s) or weakness Psychiatric Psychiatric: Denies anxiety or depression Allergic/Immunologic Allergic/Immunologic ED: Denies lip swelling or urticaria EXAM Physical Exam Const Vital Signs: 06/20/23 13:11 06/20/23 13:11 06/20/23 14:39 Temperature 97.4 F L 97.4 F L Temperature Source Temporal Temporal Pulse Rate 57 L 55 L 55 L Respiratory Rate 19 H 20 H 18 Respiratory Effort Respiratory Pattern Blood Pressure 117/50 L 117/50 L 130/57 H Blood Pressure Mean 72 72 81 Pulse Ox 96 95 97 Oxygen Delivery Method Room Air Room Air Room Air 06/20/23 14:39 06/20/23 14:42 Temperature Temperature Source Pulse Rate Respiratory Rate Respiratory Effort Normal Non-Labored Normal Non-Labored Respiratory Pattern Normal Blood Pressure Blood Pressure Mean Pulse Ox Oxygen Delivery Method Positive well nourished and well developed General Appearance ED: well developed HEENT Reports moist mucous membranes Eyes EOMs intact bilaterally Neck no lymphadenopathy Chest Wall inspection of chest normal and palpation of chest normal Resp normal respiratory effort and clear to auscultation bilaterally Cardio regular rhythm Rate: bradycardia GI non-tender Palpation: soft Extremity Extremity Narrative: No calf tenderness or edema. Strong distal pulses throughout. Neuro oriented x3 and no sensory deficits noted Motor Exam: strength 5/5 throughout Skin no rashes or lesions noted MDM MDM MDM Narrative Medical decision making narrative: Patient present director of cardiac rehabilitation. IV line initiated. EKG obtained to evaluate for cardiac arrhythmia/ischemia. Chest x-ray obtained to evaluate for acute lung pathology, cardiac size, or mediastinal abnormality. Labwork obtained to evaluate for leukocytosis, anemia, and electrolyte derangement. History & Record Review Discussion w/independent historian: Patient and Family Additional record(s) reviewed:: Prior labs Lab Data Attestation: I reviewed the patient's lab results. Labs: Laboratory Results - last 24 hr 06/20/23 14:30 WBC 9.6 RBC 4.53 L Hgb 13.4 Hct 41.0 MCV 90.5 MCH 29.6 MCHC 32.7 RDW Std Deviation 47.8 H RDW Coeff of Joe 14.4 Plt Count 263 MPV 9.5 Immature Gran % (Auto) 0.500 Neut % (Auto) 76.7 H Lymph % (Auto) 14.1 L [place] % (Auto) 7.8 Eos % (Auto) 0.4 Baso % (Auto) 0.5 Absolute Neuts (auto) 7.3 Absolute Lymphs (auto) 1.35 Nucleated RBC % 0 PT Cancelled INR Cancelled Sodium 139 Potassium 3.7 Chloride 107 Carbon Dioxide 23.0 Anion Gap 9 BUN 21 H Creatinine 1.35 H Estim Creat Clear Calc 43.63 Est GFR (MDRD) Af Amer 66 Est GFR (MDRD) Non-Af 54 L BUN/Creatinine Ratio 15.6 Glucose 146 H Calcium 8.8 Troponin I High Sens 16 Radiography Chest X-Ray - ED: 1 View, Read by ED Physician and - (Atelectasis left base. Chronic changes.) Diagnostic Testing: Clinical Impression(s) from Imaging Studies Chest X-Ray 06/20/23 14:45 IMPRESSION: Mild increased markings at the lung bases suggestive of linear atelectasis and/or scarring. Electronically Signed: Edilberto Alva MD at 15:02 EDT , EKG Initial EKG: Attestation: I personally reviewed and interpreted this EKG as follows: Interpretation: Sinus Bradycardia (Sinus bradycardia 54 bpm. No acute ischemia.) Treatment and Re-Evaluation :: CBC was normal white count 9.6 with a hemoglobin of 13.4. 76% neutrophils noted. Chemistry studies reveal a BUN of 21 and creatinine 1.35. This is only slightly elevated from his baseline. Glucose is 146. Troponin is normal at 16. Patient had an INR checked earlier today and it was 2.0. EKG is sinus bradycardia at 54 bpm. On review of prior records patient has had low heart rates in the past. His blood pressure has been adequate. With patient having syncopal episode with no significant preceding warning, I will speak with hospitalist regarding observation to ensure no evidence of cardiac arrhythmia. Discharge Plan Triage Chief Complaint: Syncope ED Provider: Carol Ann Vogt Dx/Rx/DC Orders Clinical Impression: Syncope Prescriptions: No Action glucosamine sulfate 1,000 mg capsule 2,000 mg PO DAILY Rx Instructions: administer with meals vitamin B complex-folic acid 0.4 mg tablet 1 tab PO DAILY meclizine 25 mg tablet 25 mg PO TID PRN (Reason: dizziness) Qty: 90 2RF warfarin 4 mg tablet 5 mg PO .COMPLEX Patient Comments: take 5 mg on Mondays and Rx Instructions: 5 mg orally; Take Monday, Monday, Monday ezetimibe 10 MG tablet 10 mg PO DAILY pantoprazole 20 MG tablet 20 mg PO DAILY warfarin 2.5 mg tablet 2.5 mg PO DAILY Rx Instructions: 5mg Monday/. 2.5mg all other days doxazosin 1 mg tablet 1 mg PO DAILY Patient Comments: TAKE 1 TABLET BY MOUTH EVERY DAY ambika Ernandeznthgbw-dcfktq-[id number] sd [Tart Collier] PO DAILY Primary Care Provider: Stephen Lopez Referrals: Stephen Lopez MD [Primary Care Provider] - Disposition Disposition: Acute Care Hospital [facility]
[2023-06-20] MEDS: 0.9% Normal Saline (1000mL) 1,000 ML 150 ML IV (14:32)
[2023-06-20 14:41] LABS: Absolute Lymphocyte Count 1.35 X10^3/uL (0.83-4.51); Absolute Neutrophil Count 7.3 X10^3/uL (2.0-7.7); Basophil# 0.05 X10^3/uL; Basophil% 0.5 % (0-1); Eosinophil# 0.04 X10^3/uL; Eosinophils% 0.4 % (0-5); Hemoglobin 13.4 g/dL (13.0-16.5); Lymphocyte # 1.35 X10^3/ul (0.83-4.51); Lymphocyte % 14.1 % (19-41); Mean Corp Hgb Conc 32.7 g/dL (32-36); Mean Corpuscular Hgb 29.6 pg (27.0-32.0); Mean Corpuscular Volume 90.5 fL (80-94); Mean Platelet Vol. 9.5 fl (6.2-12.0); Monocyte# 0.75 X10^3/uL; Monocyte% 7.8 % (0-10); NRBC Flagged by Analyzer 0 % (0-5); Neutrophil # 7.32 X10^3/uL (2.7-7.7); Neutrophil % 76.7 % (47-70); Platelet Count 263 K/mm3 (150-450); RBC Distribution Width CV 14.4 % (11.6-14.6); RBC Distribution Width SD 47.8 fl (35.1-43.9); Red Blood Count 4.53 M/mm3 (4.6-6.2); White Blood Count 9.6 K/mm3 (4.4-11.0)
--- NOTE | 2023-06-20 14:45 | RAD_ITS ---
STUDY: X-RAY CHEST REASON FOR EXAM: Male, 78 years old. Syncope TECHNIQUE: Single AP portable view of the chest. COMPARISON: Comparison is made with prior study dated November 03, 2018 FINDINGS: EKG electrodes are seen. Stable mild elevation of the right hemidiaphragm. Mild increased markings at the lung bases suggestive of linear atelectasis and/or scarring. There is no demonstrated pleural abnormality. There is mild cardiac enlargement. Normal mediastinum and stephanie. Normal visualized pulmonary arteries. There is atherosclerotic tortuosity of the aortic arch and descending thoracic aorta. There are diffuse degenerative changes of the visualized thoracic spine. Normal visualized ribs, clavicles, and shoulders. There is no demonstrated abnormality of the visualized soft tissue structures of the upper abdomen. RAD/Chest 1 View (Portable) IMPRESSION: Mild increased markings at the lung bases suggestive of linear atelectasis and/or scarring. Electronically Signed: Edilberto Alva MD at 15:02 EDT ,
[2023-06-20 15:02] LABS: Anion Gap 9 (5-15); BUN 21 mg/dL (7-18); BUN/Creat Ratio 15.6 RATIO (10-20); Calcium,Total 8.8 mg/dL (8.5-10.1); Chloride 107 mmol/L (98-107); Creatinine, Serum 1.35 mg/dL (0.70-1.30); EST Glomerular Filtration Rate 54 mL/min (>60); Est Glom Filt Rate - Afr Amer 66 mL/min (>60); Estimated Creatinine Clearance 43.63 ml/min; Glucose 146 mg/dL (74-106); Potassium 3.7 mmol/L (3.5-5.1); Sodium Level 139 mmol/L (136-145); Troponin-I HS (w/2H Reflex) 16 pg/mL (3.0-78.0)
--- NOTE | 2023-06-20 15:34 | PCM.HP.STD ---
HPI - General General Date of Admission: 06/20/23 Date of Service: 06/20/23 Chief Complaint: Syncopal episode HPI Narrative JOSEPH JARAMILLO, is a 78 M who presented to [facility] ED on 06/20/2023 after a syncopal episode at the gym. Patient seen at bedside in the ED, and daughter present. Patient was sitting up comfortably in bed, conversing normally, no acute distress. States that he was at the gym earlier today and was lifting his triceps when he noticed a pain that spread across the chest and upper back. He stood up from the machine he was using and noticed that he felt quite lightheaded and dizzy, so he went to a chair close by to sit down. His was with him during this time. Patient states that the next thing he knew, he was on the floor with people surrounding him. states that he was sitting with his head down in the chair and then simply slumped down and became unresponsive. He came to about 20 to 30 seconds later. States he felt very fatigued and somewhat nauseous when he came to. However, he knew where he was and denied feeling confused. states that he looked like as was a ghost before his syncopal episode and this continued for several minutes after the episode. Patient states that essentially since arriving to the ED, he has felt about back to normal. He currently feels back to his baseline. He reports 1 prior episode like this about 5 years ago. Otherwise states that he has been feeling well recently. He had a cataract procedure about 1 week ago and tolerated this without issue. He went to see the eye doctor for his follow-up appointment this morning before going to the gym, and throughout this morning he felt very normal. He took his medications as normal this morning with breakfast. Patient was admitted back in November 2022 with hyperkalemia that was presumed secondary to mild MACK and exacerbated by his ARB medication. The ARB was held on discharge at that time. Patient states that since then he has had issues with high blood pressure and his PCP has been intermittently making changes to his hypertension regimen. States his current regimen is diltiazem 300 mg daily, lisinopril 10 mg daily, Lasix 20 mg twice daily and doxazosin 4 mg daily. He has been told that his heart rate is borderline low at many points in the past. Has never been diagnosed with A-fib. He otherwise denies any acute chest pain, shortness of breath, fevers or chills, abdominal pain or discomfort. Denies any lightheadedness or dizziness at rest and was out of bed in the ED fairly recently without any issues. No other acute concerns this time. [facility] Medical History Arthritis Barretts esophagus BPH (benign prostatic hyperplasia) DVT (deep venous thrombosis) Essential hypertension Gallstones GERD (gastroesophageal reflux disease) Heterozygous factor V Leiden mutation Hyperlipidemia Lumbar degenerative disc disease Myalgia and myositis, unspecified Non-smoker Obstructive sleep apnea Peripheral vertigo Primary osteoarthritis of both hips Pulmonary embolism Renal cyst, right Scaphoid fracture of wrist Varicose vein surgery Home Medications ezetimibe 10 mg tablet 10 mg PO DAILY CHOLESTROL 11/30/18 [History Last Taken 06/19/23] pantoprazole 20 mg tablet,delayed release 20 mg PO DAILY gerd 11/30/18 [History Last Taken 06/20/23] vitamin B complex-folic acid 0.4 mg tablet 1 tab PO DAILY 02/24/20 [History Last Taken 06/19/23] warfarin 2.5 mg tablet 2.5 mg PO .COMPLEX FACTOR V 05/28/20 [History Last Taken 06/18/23] doxazosin 1 mg tablet 4 mg PO DAILY prostate 11/15/22 [History Last Taken 06/20/23] vit C-s.qucvpb-obyqdk-uzszz sd 1 cap PO DAILY gout 11/15/22 [History Last Taken 06/19/23] diltiazem HCl 300 mg capsule,extended release 24 hr 300 mg PO DAILY 06/20/23 [History Last Taken 06/20/23] furosemide 20 mg tablet (Lasix) 20 mg PO BID 06/20/23 [History Last Taken 06/20/23] lisinopril 10 mg tablet 10 mg PO DAILY 06/20/23 [History Last Taken 06/20/23] meclizine 25 mg tablet 25 mg PO Q8H PRN PRN dizziness 06/20/23 [History Last Taken Unknown] prednisolone acetate 1 % eye drops,suspension 1 drp ophthalmic (eye) .3x/day 06/20/23 [History Last Taken 06/20/23] warfarin 5 mg tablet 5 mg PO .COMPLEX 06/20/23 [History Last Taken 06/19/23] Allergy/AdvReac Type Severity Reaction Status Date / Time Penicillins Allergy Hives Verified 06/20/23 13:20 amlodipine AdvReac Unknown Swelling Verified 06/20/23 13:20 atenolol AdvReac Unknown Bradycardia Verified 06/20/23 13:20 fluticasone [From Flonase] AdvReac Unknown Headache Verified 06/20/23 13:20 Stlrsua-YRE-FbY Reductase AdvReac Unknown Myalgia Verified 06/20/23 13:20 Inhibitor [Mnqwcgg-Vii-Cda Reductase Inhibitor] Family History Father Cancer Mother Malignant hyperthermia due to anesthesia CVA (cerebral vascular accident) Sister Breast cancer Daughter Bleeding disorder Factor V CVA (cerebral vascular accident) Cavernous sinus thrombosis Surgical History H/O removal of cyst History of cholecystectomy Hx laparoscopic cholecystectomy Social History Smoking Status: Never smoker second hand exposure: No alcohol intake: former substance use type: does not use ROS Constitutional Constitutional: Denies chills, fatigue, fever(s) or weakness Eyes Eyes: Denies change in vision Cardiovascular Cardiovascular: Reports syncope; Denies chest pain, dyspnea on exertion, edema, lightheadedness or palpitations Respiratory/Chest Respiratory/Chest: Denies cough, shortness of breath at rest or wheezing Gastrointestinal Gastrointestinal: Denies abdominal pain, constipation, diarrhea, nausea or vomiting Genitourinary Genitourinary: Denies dysuria Musculoskeletal Musculoskeletal: Denies arthralgias, back pain or myalgias Neurologic Neurologic: Denies confusion, dizziness, focal weakness, headache(s) or numbness Vital Signs Vital Signs Vital Signs: 06/20/23 13:11 06/20/23 13:11 06/20/23 14:39 Temperature 97.4 F L 97.4 F L Temperature Source Temporal Temporal Pulse Rate 57 L 55 L 55 L Respiratory Rate 19 H 20 H 18 Respiratory Effort Respiratory Pattern Blood Pressure 117/50 L 117/50 L 130/57 H Blood Pressure Mean 72 72 81 Pulse Ox 96 95 97 Oxygen Delivery Method Room Air Room Air Room Air 06/20/23 14:39 06/20/23 14:42 06/20/23 13:45 Temperature Temperature Source Pulse Rate 55 L Respiratory Rate 13 Respiratory Effort Normal Non-Labored Normal Non-Labored Respiratory Pattern Normal Blood Pressure 134/54 H Blood Pressure Mean 78 Pulse Ox 97 Oxygen Delivery Method 06/20/23 14:00 06/20/23 14:30 06/20/23 15:00 Temperature Temperature Source Pulse Rate 56 L 61 53 L Respiratory Rate 21 H 12 18 Respiratory Effort Respiratory Pattern Blood Pressure 141/55 H 130/57 H 142/58 H Blood Pressure Mean 80 79 81 Pulse Ox 96 98 94 Oxygen Delivery Method Weight Weight: 80.83 kg Body Mass Index (BMI) 27.1 Physical Exam Const alert, oriented x3, no apparent distress, healthy appearing and well nourished Constitutional Narrative: Pleasant elderly male, obese, sitting up comfortably in bed, conversing normally, no acute distress. General Appearance: cooperative and comfortable HEENT normocephalic, head/scalp atraumatic, hearing grossly normal bilaterally, nasal mucous membranes and turbinates normal and moist oral mucous membranes Eyes PERRL, EOMs intact bilaterally and conjunctivae normal Neck full ROM Chest inspection of chest normal Resp normal respiratory effort, normal air movement, no use of accessory muscles and clear to auscultation bilaterally Cardio regular rate, regular rhythm, no murmurs and peripheral pulses 2+ throughout GI normal to inspection, nondistended, normoactive bowel sounds, soft to palpation, non-tender and non-distended Back/Spine normal ROM Extremity normal to inspection, full ROM and no pedal edema Skin no rashes or lesions noted Neuro moves all extremities and no focal motor deficits Speech: speech normal Motor Exam: strength 5/5 throughout Psych mental status grossly normal Results Lab / Micro Data 06/20/23 14:30 06/20/23 14:30 Labs: Laboratory Results - last 24 hr 06/20/23 14:30: WBC 9.6, RBC 4.53 L, Hgb 13.4, Hct 41.0, MCV 90.5, MCH 29.6, MCHC 32.7, RDW Std Deviation 47.8 H, RDW Coeff of Joe 14.4, Plt Count 263, MPV 9.5, Immature Gran % (Auto) 0.500, Neut % (Auto) 76.7 H, Lymph % (Auto) 14.1 L, Andrew % (Auto) 7.8, Eos % (Auto) 0.4, Baso % (Auto) 0.5, Absolute Neuts (auto) 7.3, Absolute Lymphs (auto) 1.35, Nucleated RBC % 0, PT Cancelled, INR Cancelled, Sodium 139, Potassium 3.7, Chloride 107, Carbon Dioxide 23.0, Anion Gap 9, BUN 21 H, Creatinine 1.35 H, Estim Creat Clear Calc 43.63, Est GFR (MDRD) Af Amer 66, Est GFR (MDRD) Non-Af 54 L, BUN/Creatinine Ratio 15.6, Glucose 146 H, Calcium 8.8, Troponin I High Sens 16 Imaging Radiology Impression Chest X-Ray 06/20/23 14:45 IMPRESSION: Mild increased markings at the lung bases suggestive of linear atelectasis and/or scarring. Electronically Signed: Edilberto Alva MD at 15:02 EDT , Assessment & Plan Assessment/Plan (1) Syncope: PLAN: Plan Patient is a 78-year-old male who presented to [facility] ED on 06/20/2023 with an episode of syncope at the gym. 1. Syncopal episode ? Vasovagal syncope seems most likely given acute onset of symptoms after physical stress from working out and acute chest/back pain from exercise, presyncopal symptoms prior to syncope and further quick recovery with no postictal state. Home diltiazem could contribute to a vasovagal syncope episode as well. ? Hemodynamically stable on room air in the ED. Mild hypertension at rest, orthostatic vitals not checked. Borderline sinus bradycardia on cardiac monitoring. EKG showed normal sinus rhythm, no ST changes. Troponins normal x 3. Chest x-ray nonacute. ? Last echo was done back in November 2018, showed EF 60%, no diastolic dysfunction, LA mildly enlarged, otherwise no notable valvular disease and no other acute findings. ? Admit under observation status to PCU. Repeat echo ordered. Continue cardiac monitoring. Will hold home diltiazem for now, okay to resume other home blood pressure medications. Will likely plan to hold diltiazem on discharge and encouraged outpatient follow-up with his PCP. Did note to patient and family that if he has further syncopal episodes after discharge, it would be reasonable for him to establish with a exhibitor sales at that time. 2. Hypertension ? Current home regimen of diltiazem 300 mg daily, lisinopril 10 mg daily, Lasix 20 mg twice daily, doxazosin 4 mg daily. Reportedly has had several medication changes in the last 6 to 8 months. Patient is unsure why he was started on diltiazem, especially since he has a history of borderline sinus bradycardia. ? Holding home diltiazem, okay to continue other home BP medications as noted above. 3. CKD stage III ? Creatinine 1.35 on admit, at baseline. Stable. Chronic medical conditions: ? Obesity: BMI 31 on admit. Complicates hospital course, care and prognosis. ? BPH with obstructive symptoms: Continue home doxazosin. ? History of VTE: INR 2.0 on admit. Continue home warfarin. ? GERD: Continue home PPI. ? Hyperlipidemia: Continue home statin. DVT prophylaxis: Warfarin CODE STATUS: Full code, verified Expect disposition: Home, 1 to 2 days Total clinical time spent by myself addressing the patient's medical issues, reviewing all the data, and collaborating with patient's care team: 55 minutes. Charges/Coding Visit Charges Inpatient E&M: 42394 Init Hosp L2
[2023-06-20 15:36] LABS: Prothrombin Time (Protime)PT. 22.7 SECONDS (11.7-14.9)
--- NOTE | 2023-06-20 16:07 | NURSING ---
PCU OBS MOSTELLER SYNCOPE
[2023-06-20 16:34] LABS: Reflex Troponin-HS? (from REC) Y
[2023-06-20 17:35] LABS: Troponin-I HS 16 pg/mL (3.0-78.0)
--- NOTE | 2023-06-20 17:40 | ECHOCS_ITS ---
Reason For Study: Syncope Procedure This was a 2D Doppler, Color Flow transthoracic echocardiogram. The study was technically difficult. Exam performed portable in patient room. Left Ventricle Normal LV size. Left ventricular systolic function is normal. The estimated ejection fraction is 60 %. No regional wall motion abnormalities noted. Right Ventricle Normal RV size. Normal systolic function. Atria Normal left atrium. Normal right atrium. Mitral Valve Normal mitral valve. Tricuspid Valve Normal tricuspid valve. Aortic Valve Normal aortic valve. Trisinus/trileaflet aortic valve. Pulmonic Valve Normal pulmonic valve. Great Vessels Normal aortic root. The pulmonary artery is normal size. Normal inferior vena cava. Pericardium/Pleural No pericardial effusion. Medication Diluted definity 1.0ml given slow IV push to enhance endocardial definition. MMode/2D Measurements & Calculations LVIDd: 5.3 cm IVSd: 1.1 cm Ao root diam: 3.6 cm LVIDs: 3.9 cm LVPWd: 1.1 cm RVDd: 3.2 cm FS: 26.2 % LAV(MOD-bp): 59.3 ml LVAd ap4: 44.4 cm2 LVAd ap2: 45.5 cm2 LAV(MOD-bp) Indexed: 28.8 ml/m2 LVLd ap4: 9.0 cm LVLd ap2: 8.7 cm LAV(MOD-sp2): 55.8 ml EDV(MOD-sp4): 180.8 ml EDV(MOD-sp2): 196.9 ml LAV(MOD-sp4): 53.2 ml EDV(sp4-el): 187.0 ml EDV(sp2-el): 201.5 ml LVAs ap4: 27.3 cm2 LVAs ap2: 22.0 cm2 LVLs ap4: 7.4 cm LVLs ap2: 6.5 cm ESV(MOD-sp4): 82.4 ml ESV(MOD-sp2): 64.9 ml ESV(sp4-el): 85.8 ml ESV(sp2-el): 62.9 ml EF(MOD-sp4): 54.4 % EF(MOD-sp2): 67.0 % EF(sp4-el): 54.1 % SV(MOD-sp4): 98.4 ml SV(MOD-sp2): 132.0 ml SV(sp4-el): 101.2 ml LA A4 area: 17.8 cm2 LA dimension(2D): 4.3 cm RA A4 area: 9.0 cm2 Time Measurements MV dec time: 0.21 sec Doppler Measurements & Calculations MV E max ronald: 109.0 cm/sec Lat Peak E' Ronald: 9.8 cm/sec Med Peak E' Ronald: 8.5 cm/sec MV A max ronald: 96.0 cm/sec E/E' lat: 11.2 E/E' med: 12.8 MV E/A: 1.1 Ao V2 max: 173.2 cm/sec LV V1 max: 127.3 cm/sec MV dec slope: 517.6 cm/sec2 Ao max P.0 mmHg LV V1 max P.5 mmHg PA V2 max: 119.7 cm/sec PA V2 mean: 75.5 cm/sec ECHO/Echo Complete W/ Contrast Interpretation Summary Normal LV size. Left ventricular systolic function is normal. The estimated ejection fraction is 60 %. Structurally normal valves. Contrast injection was performed. Ordering Physician: Mikel Perdomo Performed By: Klever Hamilton RCS
[2023-06-20 18:23] LABS: Hemoglobin A1c 5.5 % (3.8-5.6)
[2023-06-20] MEDS: Furosemide 20 MG Tablet PO (21:09)
[2023-06-20] MEDS: prednisoLONE eye drops (5 mL) 1 DROP OPTH.BTL 1 DRP LEFT EYE (21:09)
[2023-06-20 21:26] LABS: Troponin-I HS 18 pg/mL (3.0-78.0)
[2023-06-21 06:05] VITALS: BP 141/69; PULSE 55; RESP 16; TEMP 36.6; O2SAT 95
[2023-06-21] MEDS: prednisoLONE eye drops (5 mL) 1 DROP OPTH.BTL 1 DRP LEFT EYE ×2 (06:07→14:19)
[2023-06-21 06:55] VITALS: O2SAT 95
[2023-06-21 08:08] LABS: Hematocrit 41.6 % (40-54); Hemoglobin 13.8 g/dL (13.0-16.5); Mean Corp Hgb Conc 33.2 g/dL (32-36); Mean Corpuscular Hgb 30.1 pg (27.0-32.0); Mean Corpuscular Volume 90.6 fL (80-94); Mean Platelet Vol. 9.4 fl (6.2-12.0); Platelet Count 279 K/mm3 (150-450); RBC Distribution Width CV 14.4 % (11.6-14.6); RBC Distribution Width SD 47.9 fl (35.1-43.9); Red Blood Count 4.59 M/mm3 (4.6-6.2); White Blood Count 7.6 K/mm3 (4.4-11.0)
[2023-06-21 09:40] LABS: Anion Gap 8 (5-15); BUN 17 mg/dL (7-18); BUN/Creat Ratio 14.8 RATIO (10-20); Calcium,Total 8.7 mg/dL (8.5-10.1); Chloride 109 mmol/L (98-107); Creatinine, Serum 1.15 mg/dL (0.70-1.30); EST Glomerular Filtration Rate 65 mL/min (>60); Est Glom Filt Rate - Afr Amer 79 mL/min (>60); Glucose 98 mg/dL (74-106); Potassium 3.9 mmol/L (3.5-5.1); Sodium Level 141 mmol/L (136-145)
[2023-06-21 09:42] VITALS: BP 139/63; PULSE 60; RESP 18; TEMP 36.6; O2SAT 96
[2023-06-21] MEDS: Pantoprazole Sodium 20 MG Tablet PO (09:44)
[2023-06-21] MEDS: Ezetimibe 10 MG Tablet PO (09:44)
[2023-06-21] MEDS: Furosemide 20 MG Tablet PO (09:44)
[2023-06-21] MEDS: Doxazosin 1 MG Tablet PO (09:44)
[2023-06-21] MEDS: Lisinopril 10 MG Tablet PO (09:46)
[2023-06-21 14:15] VITALS: BP 157/65; PULSE 66; RESP 16; TEMP 36.7; O2SAT 93
--- NOTE | 2023-06-21 14:51 | CASEMGMT ---
Met with?patient to complete ROSA form. ROSA form explained to patient who voiced understanding and signed form. Original form placed in pt?s chart and copy provided to?patient. Ev Nash, Discharge Planning Asst
--- NOTE | 2023-06-21 15:59 | DS.PCM_ITS ---
Providers Date of Admission: 06/20/23 Date of Discharge: 06/21/23 Primary Care Physician: Dr. Stephen Lopez MD Reason For Visit: SYNCOPE Diagnosis Discharge Diagnosis (1) Syncope: Status: Acute Code(s): R55 - Syncope and collapse Plan 1. Vasovagal syncope #2 essential hypertension #3 hyperlipidemia #4 chronic kidney disease stage IIIa Medications at Discharge Home Medications ezetimibe 10 mg tablet 10 mg PO DAILY CHOLESTROL 11/30/18 pantoprazole 20 mg tablet,delayed release 20 mg PO DAILY gerd 11/30/18 vitamin B complex-folic acid 0.4 mg tablet 1 tab PO DAILY 02/24/20 warfarin 2.5 mg tablet 2.5 mg PO .COMPLEX FACTOR V 05/28/20 doxazosin 1 mg tablet 4 mg PO DAILY prostate 11/15/22 vit C-s.dbzcsa-fammyo-xfxsx sd 1 cap PO DAILY gout 11/15/22 diltiazem HCl 300 mg capsule,extended release 24 hr 300 mg PO DAILY 06/20/23 furosemide 20 mg tablet (Lasix) 20 mg PO BID 06/20/23 lisinopril 10 mg tablet 10 mg PO DAILY 06/20/23 meclizine 25 mg tablet 25 mg PO Q8H PRN PRN dizziness 06/20/23 prednisolone acetate 1 % eye drops,suspension 1 drp ophthalmic (eye) .3x/day 06/20/23 warfarin 5 mg tablet 5 mg PO .COMPLEX 06/20/23 Hospital Course Operations None Procedures 2-D Echocardiogram Summary of Care Provided Minutes Spent on Discharge: 30 Hospital Course: This 78-year-old white male was seen in the emergency room at [facility] after having a syncopal episode at an exercise facility. There was no seizure activity noted at the facility. Patient awoke without incident. Workup in the emergency room included an EKG and imaging studies which were unremarkable, lab was unremarkable except for an elevated creatinine at 1.35 and an elevated BUN at 21. Patient was placed in observation status on PCU, he was monitored on telemetry, he underwent an echocardiogram which was unremarkable. Repeat creatinine the next day was improved. On 06/21/2023, patient was seen and examined: On examination he appeared in good health and spirits. Vital signs as documented. Skin warm and dry and without overt rashes. Neck without JVD, neck was supple, trachea midline, thyroid was normal. Lungs clear bilaterally, normal air movement was noted. Heart exam notable for regular rhythm, normal sounds and absence of murmurs, rubs or gallops. Abdomen unremarkable and without evidence of organomegaly, masses, or abdominal aortic enlargement. Bowel sounds are present, abdomen is not distended. Extremities nonedematous, no cyanosis was noted, no clubbing was noted. Neuro: Cranial nerves II through XII are grossly intact, no focal motor deficits were noted, sensation to light touch and pinprick intact, motor exam 5/5 throughout. Psych: Patient is alert and oriented x3, he does not appear anxious or depressed, he does not appear agitated. Patient appears stable for discharge home on 06/21/2023 Weight / BMI Weight Weight: 92.7 kg Body Mass Index (BMI) 31.0 ABG / Lab / Microbiology Data 06/21/23 07:41 06/21/23 07:41 Laboratory: Laboratory Results - last 24 hr 06/20/23 14:30: Hemoglobin A1c 5.5 06/20/23 16:45: Troponin I High Sens 16 06/20/23 20:40: Troponin I High Sens 18 06/21/23 07:41: WBC 7.6, RBC 4.59 L, Hgb 13.8, Hct 41.6, MCV 90.6, MCH 30.1, MCHC 33.2, RDW Std Deviation 47.9 H, RDW Coeff of Joe 14.4, Plt Count 279, MPV 9.4, Sodium 141, Potassium 3.9, Chloride 109 H, Carbon Dioxide 24.0, Anion Gap 8, BUN 17, Creatinine 1.15, Estim Creat Clear Calc 58.50, Est GFR (MDRD) Af Amer 79, Est GFR (MDRD) Non-Af 65, BUN/Creatinine Ratio 14.8, Glucose 98, Calcium 8.7 Radiography Diagnostic Testing: Radiology Impression Echocardiogram 06/20/23 17:40 Interpretation Summary Normal LV size. Left ventricular systolic function is normal. The estimated ejection fraction is 60 %. Structurally normal valves. Contrast injection was performed. Ordering Physician: Mikel Perdomo Performed By: Klever Hamilton RCS D/C Instructions Discharge Diet: No restrictions Weight Bearing Status: Full weight bearing Meaningful Use Info Meaningful Use Diagnoses (Choose all that apply): None applicable Discharge Plan Admission Admit Date/Time: 06/20/23 15:47 Primary Reason for Your Visit: Vasovagal syncope Attending Provider: Faraz Liang Primary Care Provider: Stephen Lopez Consulting Providers: Mikel Perdomo Discharge Orders/Prescriptions Prescriptions: Continued vitamin B complex-folic acid 0.4 mg tablet 1 tab PO DAILY ezetimibe 10 MG tablet 10 mg PO DAILY pantoprazole 20 MG tablet 20 mg PO DAILY warfarin 2.5 mg tablet 2.5 mg PO .COMPLEX Rx Instructions: 2.5 mg orally , , Mon, Mon; 5mg Monday/. 2.5mg all other days doxazosin 1 mg tablet 4 mg PO DAILY Patient Comments: TAKE 1 TABLET BY MOUTH EVERY DAY vit C-s.dkekhr-wvygda-vzhdh sd [Tart Collier] 1 cap PO DAILY warfarin 5 mg tablet 5 mg PO .COMPLEX Rx Instructions: 5 mg orally Mon, Wed, Mon; diltiazem HCl 300 mg capsule,extended release 24hr 300 mg PO DAILY furosemide [Lasix] 20 mg tablet 20 mg PO BID meclizine 25 mg tablet 25 mg PO Q8H PRN PRN (Reason: dizziness) lisinopril 10 mg tablet 10 mg PO DAILY prednisolone acetate 1 % drops,suspension 1 drp ophthalmic (eye) .3x/day Patient Comments: left eye only Referrals / Follow Up: Stephen Lopez MD [Primary Care Provider] - See Referral Note (At your next scheduled appointment) Disposition Disposition (needs filled in before D/C Order can be placed): Home, Self Care Charges/Coding Visit Charges Inpatient E&M: 99609 Disch Hosp
--- NOTE | 2023-06-21 16:06 | CASEMGMT ---
RN LETA note: Discharge order is in. RN CM to room. Introduced self and role. Pt sitting on edge of bed. @ bedside. Pt denies having any discharge needs or concerns. Matthew FRYEN RN CM
== END 2023-06-21 15:59 | disposition home or self-care (01) ==
LOC: ED 16:03 → PCU 16:04
PROVIDERS: Admitting Provider Hospitalist; Emergency Provider Emergency Medicine; PCP Family Medicine; Visit Provider Internal Medicine
DX: R55 Syncope and collapse (principal); N18.31 Chronic kidney disease, stage 3a; E78.5 Hyperlipidemia, unspecified; N40.1 Benign prostatic hyperplasia with lower urinary tract symptoms; K21.9 Gastro-esophageal reflux disease without esophagitis; Z79.01 Long term (current) use of anticoagulants; Z86.718 Personal history of other venous thrombosis and embolism; Z86.711 Personal history of pulmonary embolism; D68.51 Activated protein C resistance; Z79.899 Other long term (current) drug therapy; Z87.891 Personal history of nicotine dependence; R07.89 Other chest pain; N13.8 Other obstructive and reflux uropathy; E66.9 Obesity, unspecified; Z68.31 Body mass index [BMI] 31.0-31.9, adult; I12.9 Hypertensive chronic kidney disease with stage 1 through stage 4 chronic kidney disease, or unspecified chronic kidney disease
CPT/HCPCS: 36415; 71045; 80048; 83036; 84484; 85025; 85027; 85610; 93005; 93306; 96360; 96361; 99221; 99285; J7030; Q9957; A4216; C8929; G0378

== ENCOUNTER → 2023-09-21 | Outpatient (CLI) | payer MEDICARE, SELFPAY ==
--- NOTE | 2023-09-21 08:46 | US_ITS ---
STUDY: ABDOMINAL ULTRASOUND - RIGHT UPPER QUADRANT; ELASTOGRAPHY REASON FOR VISIT: Male, 78 years old. PARKS TECHNIQUE: Ultrasound evaluation of the right upper quadrant was performed with real-time and static amador-scale imaging. Point quantification shear wave elastography was performed ([employer]). TECHNICAL QUALITY: Adequate. COMPARISON: Comparison is made with prior study dated July 11, 2012. FINDINGS: Liver: The liver measures 17.7 cm. There is increased echogenicity consistent with fatty infiltration. The bile ducts are within normal limits. There is hepatic color flow. The direction of portal flow is hepatopetal. There is no demonstrated mass lesion. Median liver stiffness measured 14.2 kPa. Gallbladder: The patient is status post cholecystectomy. Common Bile Duct (C.B.D.): The common bile duct measures 6 mm. Pancreas: The pancreas is not visualized due to overlying bowel gas. Right Kidney: Normal size of the right kidney. The right kidney measures 11.7 cm x 4.9 cm x 5.4 cm. Normal renal cortex. The right cortex measures 1.3 cm. 2 large renal cysts are seen. The larger cyst measures 7.9 cm x 7 cm x 5.3 cm. There is no right hydronephrosis. US/ABD Limited w/ Elastography IMPRESSION: 1. 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 2. Right renal cysts. Electronically Signed: Edilberto Alva MD at 9:58 EDT ,
== END | disposition home or self-care (01) ==
PROVIDERS: PCP Family Medicine; Referring Provider Family Medicine; Visit Provider Family Medicine
DX: K75.81 Nonalcoholic steatohepatitis (NASH) (principal)
CPT/HCPCS: 76705; 76981

== ENCOUNTER → 2024-04-11 | Outpatient (CLI) | payer MEDICARE, SELFPAY ==
--- NOTE | 2024-04-11 13:15 | RAD_ITS ---
STUDY: X-RAY - CERVICAL SPINE REASON FOR EXAM: Male, 79 years old. Neck pain. TECHNIQUE: 3 view(s) of the cervical spine were obtained. COMPARISON: None FINDINGS: Osteopenia. Normal anterior atlantoaxial articulation. Normal odontoid process. Normal cervical lordosis. Diffuse moderate uncovertebral and facet sclerosis. Intervertebral disc space narrowing most marked at C5-6 and C6-7 with small osteophytes. Mild left carotid calcification. RAD/Cerv Spine 2 or 3 Views IMPRESSION: Osteopenia with moderate lower cervical spondylosis with no acute finding. Mild left carotid calcification. Electronically Signed: Tim Garces MD at 16:22 EST ,
== END | disposition home or self-care (01) ==
LOC: RAD 13:11
PROVIDERS: PCP Family Medicine; Referring Provider Anesthesiology Pain Medicine; Visit Provider Anesthesiology Pain Medicine
DX: M54.2 Cervicalgia (principal)
CPT/HCPCS: 72040

== ENCOUNTER → 2024-04-19 | Outpatient (CLI) | payer MEDICARE, SELFPAY ==
--- NOTE | 2024-04-19 09:22 | US_ITS ---
STUDY: ABDOMINAL ULTRASOUND - RIGHT UPPER QUADRANT; ELASTOGRAPHY REASON FOR VISIT: Male, 79 years old. Hepatic fibrosis. TECHNIQUE: Ultrasound evaluation of the right upper quadrant was performed with real-time and static amador-scale imaging. Point quantification shear wave elastography was performed ([employer]). TECHNICAL QUALITY: Adequate. COMPARISON: Comparison is made with prior study dated September 21, 2023. FINDINGS: Liver: The liver measures 17.5 cm. There is increased echogenicity consistent with fatty infiltration. The bile ducts are within normal limits. There is hepatic color flow. The direction of portal flow is hepatopetal. There is no demonstrated mass lesion. Median liver stiffness measured 14.8 kPa. Gallbladder: The patient is status post cholecystectomy. Common Bile Duct (C.B.D.): The common bile duct measures 4 mm. Pancreas: The pancreas is not visualized due to overlying bowel gas. Right Kidney: Normal size of the right kidney. The right kidney measures 11.5 cm x 6.6 cm x 5.1 cm. Normal renal cortex. The right cortex measures 1.8 cm. There is an 8.7 cm x 6.9 cm x 6.4 cm cyst in the lateral aspect of the kidney. There is also evidence of a 4.8 cm x 4.8 signed by 4.3 cm cyst in the upper pole. There is no right hydronephrosis. IMPRESSION: 1. Liver stiffness measures 14.8 kPa compatible with F3-F4 (Moderate to severe liver fibrosis) [place] vir score. Electronically Signed: Edilberto Alva MD at 11:04 EST , STUDY: ABDOMINAL ULTRASOUND - LEFT UPPER QUADRANT REASON FOR EXAM: Male, 79 years old. LIVER Fibrosis F3-4 -- INCLUDING SPLEEN TECHNIQUE: Transabdominal ultrasound was performed with real-time and static amador scale imaging. TECHNICAL QUALITY: Adequate. COMPARISON: None. FINDINGS: Spleen: Normal size of the spleen. The spleen measures 9.5 cm x 4.7 cm x 3.6 cm US/ABD Limited w/ Elastography IMPRESSION: Normal spleen. Electronically Signed: Edilberto Alva MD at 11:04 EST ,
== END | disposition home or self-care (01) ==
LOC: US 09:21
PROVIDERS: PCP Family Medicine; Referring Provider Internal Medicine; Visit Provider Internal Medicine
DX: K76.0 Fatty (change of) liver, not elsewhere classified (principal); I82.409 Acute embolism and thrombosis of unspecified deep veins of unspecified lower extremity; R55 Syncope and collapse; E87.5 Hyperkalemia; D68.51 Activated protein C resistance; I10 Essential (primary) hypertension
CPT/HCPCS: 76705; 76981

== ENCOUNTER → 2024-08-09 | Outpatient (CLI) | payer MEDICARE, SELFPAY ==
[2024-08-09 12:01] LABS: International Normalized Ratio 1.3; Prothrombin Time (Protime)PT. 16.4 SECONDS (11.7-14.9)
[2024-08-09 12:04] LABS: Absolute Lymphocyte Count 2.14 X10^3/uL (0.83-4.51); Absolute Neutrophil Count 3.2 X10^3/uL (2.0-7.7); Basophil# 0.05 X10^3/uL; Basophil% 0.8 % (0-1); Eosinophil# 0.14 X10^3/uL; Eosinophils% 2.2 % (0-5); Hematocrit 42.3 % (40-54); Hemoglobin 14.2 g/dL (13.0-16.5); Lymphocyte # 2.14 X10^3/ul (0.83-4.51); Lymphocyte % 34.2 % (19-41); Mean Corp Hgb Conc 33.6 g/dL (32-36); Mean Corpuscular Hgb 30.1 pg (27.0-32.0); Mean Corpuscular Volume 89.6 fL (80-94); Mean Platelet Vol. 9.4 fl (6.2-12.0); Monocyte# 0.68 X10^3/uL; Monocyte% 10.9 % (0-10); NRBC Flagged by Analyzer 0 % (0-5); Neutrophil # 3.23 X10^3/uL (2.7-7.7); Neutrophil % 51.7 % (47-70); Platelet Count 292 K/mm3 (150-450); RBC Distribution Width CV 14.5 % (11.6-14.6); RBC Distribution Width SD 47.7 fl (35.1-43.9); Red Blood Count 4.72 M/mm3 (4.6-6.2); White Blood Count 6.3 K/mm3 (4.4-11.0)
[2024-08-09 12:18] LABS: Hemoglobin A1c 5.9 % (<=5.6)
[2024-08-09 13:03] LABS: Ammonia 29.5 umol/L (16-60)
[2024-08-09 13:08] LABS: ALB/GLOB Ratio 0.9 RATIO (0.9-2.4); AST(SGOT) 87 U/L (<=37); Alanine Aminotransfer ALT/SGPT 69 U/L (<=46); Alkaline Phosphatase 55 U/L (40-129); Anion Gap 12 (5-15); BUN 15 mg/dL (4-19); BUN/Creat Ratio 14.8 RATIO (10-20); Calcium,Total 9.1 mg/dL (7.6-11.0); Carbon Dioxide 22.5 mmol/L (21.0-32.0); Chloride 105 mmol/L (98-108); Cholesterol 167 mg/dL (<=200); Creatinine, Serum 1.04 mg/dL (0.70-1.20); EST Glomerular Filtration Rate 73 (>60); Ferritin 33 ng/mL (37-417); Globulin 4.3 g/dL (2.2-4.2); Glucose 93 mg/dL (70-99); High Density Lipoprotein 38 mg/dL; Low Density Lipoprotein Calc. 101 mg/dL; Potassium 3.9 mmol/L (3.3-5.1); Protein, Total 8.3 g/dL (5.9-8.4); Sodium Level 140 mmol/L (133-145); Total Bilirubin 0.48 mg/dL (0.00-1.30); Triglycerides 142 mg/dL; Very Low Density Lipoprotein 28 mg/dL (5-40); cholesterol:hdl ratio screen 4.45
[2024-08-09 13:25] LABS: Iron Binding Capacity,Total 353 ug/dL (250-450)
[2024-08-09 13:27] LABS: CRP < 3.00 mg/L (0.0-3.0); Iron 91 ug/dL (65-175); Iron Binding Capacity,Unsat 262 ug/dL (228-428); Magnesium 1.8 mg/dL (1.5-2.2); PERCENT IRON SATURATION 25.8 % (9-55); Phosphorus 1.4 mg/dL (2.7-4.5)
[2024-08-09 15:05] LABS: HIV Nonreactive (Nonreactive)
[2024-08-12 16:08] LABS: ANTINUCLEAR ANTIBODIES DIRECT Positive (Negative); Anti-Centromere B Ab <0.2 AI (0.0-0.9); Anti-Chromatin <0.2 AI (0.0-0.9); Anti-Jo <0.2 AI (0.0-0.9); Anti-Mitochondrial AB <20.0 Units (0.0-20.0); Anti-Scleroderma-70 AB 1.3 AI (0.0-0.9); Anti-dsDNA Ab <1 IU/mL (0-9); RNP Ab <0.2 AI (0.0-0.9); SJOGREN'S Anti-SS-A test < 0.2 AI (0.0-0.9); SJOGREN'S Anti-SS-B test < 0.2 AI (0.0-0.9); Smith Ab <0.2 AI (0.0-0.9)
[2024-08-14 03:07] LABS: AFP, Tumor Marker 3.8 ng/mL (0.0-8.4); Albumin 3.5 g/dL (2.9-4.4); Alpha-1-Globulins 0.2 g/dL (0.0-0.4); Alpha-2-Globulins 0.8 g/dL (0.4-1.0); Anti-Smooth Muscle ABS 9 Units (0-19); Ceruloplasmin 19.9 mg/dL (16.0-31.0); Copper, Serum or Plasma 76 ug/dL (69-132); Cytoplasmic Ab (C-ANCA) <1:20 titer (Neg:<1:20); GGTP 38 IU/L (0-65); Gamma Globulin 2.1 g/dL (0.4-1.8); HEPATITIS B SURFACE AG Negative (Negative); Haptoglobin 123 mg/dL (34-355); Hep C Antibodies Non Reactive (Non Reactive); Hepatitis A IgM Antibody Negative (Negative); Hepatitis B Core AB IgM Negative (Negative); IMMUNOFIXATION RESULT,S Comment: (.); Immunoglobulin A 504 mg/dL (61-437); Immunoglobulin G 2024 mg/dL (603-1613); Immunoglobulin M 337 mg/dL (15-143); PROEL- TOTAL PROTEIN 7.8 g/dL (6.0-8.5); Perinuclear Ab (P-ANCA) <1:20 titer (Neg:<1:20)
== END | disposition home or self-care (01) ==
PROVIDERS: PCP Family Medicine; Referring Provider Internal Medicine; Visit Provider Internal Medicine
DX: I82.409 Acute embolism and thrombosis of unspecified deep veins of unspecified lower extremity (principal); K76.0 Fatty (change of) liver, not elsewhere classified; R55 Syncope and collapse; E87.5 Hyperkalemia; D68.51 Activated protein C resistance; I10 Essential (primary) hypertension; R79.89 Other specified abnormal findings of blood chemistry; E03.9 Hypothyroidism, unspecified; R73.03 Prediabetes; D64.9 Anemia, unspecified
CPT/HCPCS: 80053; 80061; 80074; 82105; 82140; 82390; 82525; 82728; 82784; 82977; 83010; 83036; 83516; 83540; 83550; 83735; 84100; 84165; 84443; 85025; 85610; 86037; 86038; 86140; 86225; 86235; 86334; 86703

== ENCOUNTER 2024-09-20 11:17 | Emergency (ER) | payer MEDICARE, SELFPAY ==
[2024-09-20 11:18] VITALS: BP 148/72; PULSE 83; RESP 16; TEMP 36.2; O2SAT 94; BMI 30.9
--- NOTE | 2024-09-20 11:49 | VDLE_ITS ---
Reason For Study Reason For Study: Swelling RLE, Hx of DVT RIGHT LEFT GSV is normal. CFV is compressible, spontaneous, phasic, competent, CFV is compressible, spontaneous, phasic, competent and demonstrates normal augmentation. and demonstrates normal augmentation. FV is compressible, spontaneous, phasic, competent and demonstrates normal augmentation. POP V is compressible, phasic, and INCOMPETENT for greater than 1.0 second. Rt T/P Trunk and Rt GastrocV are partially compressible with bright intraluminal echoes consistent with chronic DVT. PTV is compressible. RT PerV is compressible. Procedure This is a venous duplex using B-mode, color flow and spectral Doppler. Exam performed in department. A preliminary report was called and/or faxed to [facility]. VL/Venous Duplex US, Unilateral Interpretation Summary Chronic venous changes are noted in the right tibio-peroneal trunk and gastrocn emius vein, which are partially compressible and demonstrate bright intraluminal echogenicity. The remainder of the right lower extremity deep venous system is patent and compressible. The right popliteal vein is incompetent. The right great saphenous vein appears patent and compressible segmentally. The left common femoral vein is patent and compressible . Ordering Physician: Mera Castro Referring Physician: Stephen Lopez Performed By: Kiesha Jay, SANTO, RVT
--- NOTE | 2024-09-20 15:18 | ED.VIS.LOWEX ---
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 He states prior to this he was leaning down helping a friend work on a motorcycle denies any injury. He is concerned about a blood clot given the swelling. Notes he also does have a history of gout but states this does not feel like that. Has taken Tylenol sometimes and states he is able to sleep is not sure if the Tylenol is working. Notes he does have a lot of arthritis throughout his body. Denies any shortness of breath or difficulty breathing. Denies any fever or chills. No other complaints or concerns reported at this time. [facility] Medical History Idiopathic chronic gout, unspecified site, without tophus (tophi) Elevated LFTs DDD (degenerative disc disease) Bilateral leg edema Bilateral carotid artery stenosis Benign prostatic hyperplasia (BPH) with urinary urge incontinence Acute gastritis without mention of hemorrhage Arthritis Non-smoker Varicose vein surgery Scaphoid fracture of wrist Renal cyst, right Primary osteoarthritis of both hips Peripheral vertigo Myalgia and myositis, unspecified Hyperlipidemia Heterozygous factor V Leiden mutation Gallstones Essential hypertension Pulmonary embolism Lumbar degenerative disc disease DVT (deep venous thrombosis) BPH (benign prostatic hyperplasia) Barretts esophagus YISSEL (obstructive sleep apnea) GERD (gastroesophageal reflux disease) Factor 5 Leiden mutation, heterozygous Home Medications ?Medication ?Instructions ?Recorded ?Last Taken ?Type ezetimibe 10 mg tablet 10 mg PO DAILY CHOLESTROL 11/30/18 06/19/23 History pantoprazole 20 mg tablet,delayed 20 mg PO DAILY gerd 11/30/18 06/20/23 History release vitamin B complex-folic acid 0.4 1 tab PO DAILY 02/24/20 06/19/23 History mg tablet doxazosin 1 mg tablet 4 mg PO DAILY prostate 11/15/22 06/20/23 History vit C-s.ygbpbd-ghcnfe-qzctk sd 1 cap PO DAILY gout 11/15/22 06/19/23 History furosemide 20 mg tablet (Lasix) 20 mg PO BID 06/20/23 06/20/23 History meclizine 25 mg tablet 25 mg PO Q8H PRN PRN dizziness 06/20/23 Unknown History apixaban 5 mg tablet (Eliquis) 5 mg PO BID 04/29/24 Unknown History lisinopril 10 mg tablet 20 mg PO DAILY 08/20/24 Unknown History Allergy/AdvReac Type Severity Reaction Status Date / Time hydrochlorothiazide Allergy Intermediate Other Verified 09/20/24 11:18 Penicillins Allergy Hives Verified 09/20/24 11:18 amlodipine AdvReac Unknown Swelling Verified 09/20/24 11:18 atenolol AdvReac Unknown Bradycardia Verified 09/20/24 11:18 fluticasone (From Flonase) AdvReac Unknown Headache Verified 09/20/24 11:18 Nkhbysp-GCP-IeT Reductase AdvReac Unknown Myalgia Verified 09/20/24 11:18 Inhibitor (Vlpfelr-Vyj-Raz Reductase Inhibitor) Family History Father Cancer Mother Malignant hyperthermia due to anesthesia CVA (cerebral vascular accident) Sister Breast cancer Daughter Bleeding disorder Factor V CVA (cerebral vascular accident) Cavernous sinus thrombosis Surgical History History of esophagogastroduodenoscopy History of colonoscopy History of cholecystectomy H/O removal of cyst Hx laparoscopic cholecystectomy Social History Smoking Status: Never smoker second hand exposure: No alcohol intake: former substance use type: does not use ROS ROS ED Constitutional Constitutional ED: Denies chills or fever(s) Cardiovascular Cardiovascular: Denies chest pain or palpitations Respiratory/Chest Respiratory/Chest: Denies cough or dyspnea Gastrointestinal Gastrointestinal: Denies nausea or vomiting Musculoskeletal Musculoskeletal: Reports other Details: Right ankle/foot pain and swelling Integumentary Denies Abrasions or rash Neurologic Neurologic: Denies paresthesias or weakness EXAM Physical Exam Const Vital Signs: 09/20/24 11:18 09/20/24 15:29 Temperature 97.1 F L 97.1 F L Temperature Source Temporal Pulse Rate 83 74 Respiratory Rate 16 16 Blood Pressure 148/72 H 140/70 H Blood Pressure Mean 97 93 Pulse Ox 94 96 Positive well nourished and well developed General Appearance ED: well developed and NAD Chest Wall inspection of chest normal Resp normal respiratory effort Cardio regular rate and regular rhythm Cardio Narrative: 2+ DP pulses present Extremity Extremity Narrative: Nonpitting edema of the right ankle/foot. No obvious deformity. Right lower leg is slightly larger than the left. No pitting edema appreciated. Compartments are soft. No palpable cords. No deformities ankle or foot. Mild tenderness over the dorsal midfoot but no pinpoint bony tenderness. No short arc range of motion pain of the foot or ankle. Normal range of motion of the toes. No overlying redness or warmth. Neuro oriented x3, moves all extremities and no sensory deficits noted Sensorium / Orientation: alert Psych mental status grossly normal Skin no wounds Skin Narrative: Chronic varicosities of the right foot, no acute skin changes noted MDM MDM MDM Narrative Medical decision making narrative: Patient evaluated for atraumatic right foot/ankle pain. Does have associated edema. Denies any acute trauma. Does not have any pinpoint bony tenderness I do not think he requires an x-ray. Low suspicion for fracture. Venous duplex obtained which shows a chronic DVT but no acute process. Patient is anticoagulant Eliquis. Counseled that I do not think he has any new clot burden that is causing the swelling. Question of this could be arthritic in nature. He does not have significant pain or overlying skin changes concerning for septic joint or gouty arthropathy. Encouraged to continue elevating, using compressive socks and taking Tylenol. Offered a prescription for stronger pain medication but declines. Given return precautions. Courage follow-up with primary care doctor. I did consider an x-ray of the foot to look for arthritic changes however given his lack of trauma I do not think it is emergently indicated at this time. Patient was agreeable with this Discharge Plan Triage Chief Complaint: Lower Extremity Injury ED Provider: China Segura Dx/Rx/DC Orders Clinical Impression: Acute right ankle pain, Edema of right foot Instructions: ED Arthralgia, ED Peripheral Edema, Unilateral Prescriptions: No Action vitamin B complex-folic acid 0.4 mg tablet 1 tab PO DAILY Eliquis 5 mg tablet 5 mg PO BID lisinopril 10 mg tablet 20 mg PO DAILY ezetimibe 10 MG tablet 10 mg PO DAILY pantoprazole 20 MG tablet 20 mg PO DAILY doxazosin 1 mg tablet 4 mg PO DAILY Patient Comments: TAKE 1 TABLET BY MOUTH EVERY DAY vit C-s.icewac-smytja-ftane sd [Tart Collier] 1 cap PO DAILY furosemide [Lasix] 20 mg tablet 20 mg PO BID meclizine 25 mg tablet 25 mg PO Q8H PRN PRN (Reason: dizziness) Primary Care Provider: Stephen Lopez Referrals: Stephen Lopez MD [Primary Care Provider] - Activity Restrictions/Additional Instructions: Your ultrasound showed a chronic DVT in your right lower leg but did not show any acute process. It is possible this could be arthritic pain. Continue take Tylenol. Follow-up with vascular surgery primary care doctor as we discussed Print Language: Italian Disposition Disposition: Home, Self Care Discharge Date/Time: 09/20/24 15:33
[2024-09-20 15:29] VITALS: BP 140/70; PULSE 74; RESP 16; TEMP 36.2; O2SAT 96
== END 2024-09-20 15:33 | disposition home or self-care (01) ==
PROVIDERS: Emergency Provider Emergency Medicine; PCP Family Medicine; Visit Provider Emergency Medicine
DX: M25.571 Pain in right ankle and joints of right foot (principal); R60.0 Localized edema; E78.5 Hyperlipidemia, unspecified; I10 Essential (primary) hypertension; Z86.718 Personal history of other venous thrombosis and embolism; Z86.711 Personal history of pulmonary embolism; Z79.01 Long term (current) use of anticoagulants; K21.9 Gastro-esophageal reflux disease without esophagitis; Z79.899 Other long term (current) drug therapy; N40.0 Benign prostatic hyperplasia without lower urinary tract symptoms; Z90.49 Acquired absence of other specified parts of digestive tract; M79.671 Pain in right foot
CPT/HCPCS: 93971; 99282

== ENCOUNTER 2024-10-01 08:47 | Outpatient (CLI) | payer MEDICARE, SELFPAY ==
[2024-10-01] VITALS (15 sets, daily range): BP systolic 143–191; BP diastolic 40–70; PULSE 47–64; RESP 10–25; TEMP 37.1; O2SAT 91–97; BMI 30.4
[2024-10-01 09:14] LABS: Hematocrit 43.4 % (40-54); Hemoglobin 14.4 g/dL (13.0-16.5); Immature Granulocytes Count 0.020 X10^3/uL (0.0-0.0); Mean Corp Hgb Conc 33.2 g/dL (32-36); Mean Corpuscular Volume 89.9 fL (80-94); Mean Platelet Vol. 9.2 fl (6.2-12.0); NRBC Flagged by Analyzer 0 % (0-5); Platelet Count 301 K/mm3 (150-450); RBC Distribution Width CV 14.1 % (11.6-14.6); RBC Distribution Width SD 46.5 fl (35.1-43.9); Red Blood Count 4.83 M/mm3 (4.6-6.2); White Blood Count 6.8 K/mm3 (4.4-11.0)
--- NOTE | 2024-10-01 09:14 | US_ITS ---
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 Intravenous administration a total of 2 mg Versed and 75 mcg fentanyl was utilized. Following informed consent and using standard sterile technique, a right hepatic ultrasound-guided core biopsy was performed via a subcostal approach. 2% lidocaine local anesthesia was followed by placement of a Freebaset 18/17 G 15 cm core biopsy system under sonographic guidance. 4 samples were then obtained. There were no immediate complications. US/Liver Biopsy Ultrasound IMPRESSION: Successful ULTRASOUND GUIDED RANDOM LIVER BIOPSY. Laboratory results pending. Reading Location: [place] [id number]
--- NOTE | 2024-10-01 09:14 | US_ITS ---
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 Intravenous administration a total of 2 mg Versed and 75 mcg fentanyl was utilized. Following informed consent and using standard sterile technique, a right hepatic ultrasound-guided core biopsy was performed via a subcostal approach. 2% lidocaine local anesthesia was followed by placement of a Boomsenset 18/17 G 15 cm core biopsy system under sonographic guidance. 4 samples were then obtained. There were no immediate complications. US/Liver Biopsy Ultrasound IMPRESSION: Successful ULTRASOUND GUIDED RANDOM LIVER BIOPSY. Laboratory results pending. Reading Location: [place] [id number]
[2024-10-01 09:24] LABS: Prothrombin Time (Protime)PT. 14.3 SECONDS (11.7-14.9)
[2024-10-01 09:52] LABS: AST(SGOT) 66 U/L (<=37); Alanine Aminotransfer ALT/SGPT 59 U/L (<=46); Albumin, Serum 4.0 g/dL (3.4-4.8); Alkaline Phosphatase 61 U/L (40-129); Anion Gap 12 (5-15); BUN 14 mg/dL (4-19); BUN/Creat Ratio 13.3 RATIO (10-20); CRP 3.12 mg/L (0.0-3.0); Calcium,Total 9.1 mg/dL (7.6-11.0); Carbon Dioxide 23.8 mmol/L (21.0-32.0); Chloride 104 mmol/L (98-108); Estimated Creatinine Clearance 62.39 ml/min (50-250); Globulin 4.4 g/dL (2.2-4.2); Glucose 98 mg/dL (70-99); Potassium 4.1 mmol/L (3.3-5.1)
[2024-10-01] MEDS: Midazolam 2 MG/2 ML Syringe IV ×2 (10:18→10:31)
[2024-10-01] MEDS: fentaNYL 100 MCG/2 ML Ampul IV ×2 (10:20→10:33)
[2024-10-01] MEDS: 0.9% Normal Saline (250mL Bag) 250 ML 15 ML IV (10:21)
[2024-10-01] MEDS: Lidocaine 2% (20 ml mdv) 20 ML Vial INFILT (10:27)
[2024-10-01 11:23] LABS: Pathology Sent to OSU SEE PATHOLOGY REPORT
== END 2024-10-01 23:59 | disposition home or self-care (01) ==
PROVIDERS: PCP Family Medicine; Referring Provider Internal Medicine; Visit Provider Internal Medicine
DX: K74.00 Hepatic fibrosis, unspecified (principal); K75.4 Autoimmune hepatitis; K76.0 Fatty (change of) liver, not elsewhere classified; E78.1 Pure hyperglyceridemia
CPT/HCPCS: 47000; 36415; 76942; 80053; 85025; 85610; 86140; 99156

== ENCOUNTER → 2024-11-06 | Outpatient (CLI) | payer MEDICARE, SELFPAY ==
[2024-11-06 15:39] LABS: Hematocrit 41.4 % (40-54); Hemoglobin 14.0 g/dL (13.0-16.5); Immature Granulocytes Count 0.030 X10^3/uL (0.0-0.0); Mean Corp Hgb Conc 33.8 g/dL (32-36); Mean Corpuscular Volume 87.3 fL (80-94); Mean Platelet Vol. 9.8 fl (6.2-12.0); NRBC Flagged by Analyzer 0 % (0-5); Platelet Count 340 K/mm3 (150-450); RBC Distribution Width CV 14.6 % (11.6-14.6); RBC Distribution Width SD 46.5 fl (35.1-43.9); Red Blood Count 4.74 M/mm3 (4.6-6.2); White Blood Count 8.1 K/mm3 (4.4-11.0)
[2024-11-06 16:01] LABS: Prothrombin Time (Protime)PT. 16.9 SECONDS (11.7-14.9)
[2024-11-06 16:12] LABS: AST(SGOT) 90 U/L (<=37); Alanine Aminotransfer ALT/SGPT 85 U/L (<=46); Albumin, Serum 3.9 g/dL (3.4-4.8); Alkaline Phosphatase 58 U/L (40-129); Anion Gap 16 (5-15); BUN 21 mg/dL (4-19); BUN/Creat Ratio 18.6 RATIO (10-20); Calcium,Total 8.7 mg/dL (7.6-11.0); Carbon Dioxide 19.7 mmol/L (21.0-32.0); Chloride 103 mmol/L (98-108); Globulin 4.2 g/dL (2.2-4.2); Glucose 114 mg/dL (70-99); Potassium 3.8 mmol/L (3.3-5.1); Vitamin D,25 Hydroxy 27.7 ng/mL (30-100)
[2024-11-06 17:33] LABS: CRP < 3.00 mg/L (0.0-3.0); LDH 289 U/L (87-241)
== END | disposition home or self-care (01) ==
LOC: LAB 14:22
PROVIDERS: PCP Family Medicine; Referring Provider Internal Medicine; Visit Provider Internal Medicine
DX: K75.4 Autoimmune hepatitis (principal); E78.1 Pure hyperglyceridemia; K76.0 Fatty (change of) liver, not elsewhere classified; E55.9 Vitamin D deficiency, unspecified
CPT/HCPCS: 36415; 80053; 82306; 83615; 85025; 85610; 86140

== ENCOUNTER → 2025-01-22 | Outpatient (CLI) | payer MEDICARE, SELFPAY ==
[2025-01-22 15:22] LABS: Hematocrit 41.5 % (40-54); Hemoglobin 13.8 g/dL (13.0-16.5); Immature Granulocytes Count 0.090 X10^3/uL (0.0-0.0); Mean Corp Hgb Conc 33.3 g/dL (32-36); Mean Corpuscular Volume 90.6 fL (80-94); Mean Platelet Vol. 9.7 fl (6.2-12.0); NRBC Flagged by Analyzer 0 % (0-5); Platelet Count 375 K/mm3 (150-450); RBC Distribution Width CV 15.9 % (11.6-14.6); RBC Distribution Width SD 52.3 fl (35.1-43.9); Red Blood Count 4.58 M/mm3 (4.6-6.2); White Blood Count 9.3 K/mm3 (4.4-11.0)
[2025-01-22 15:52] LABS: Prothrombin Time (Protime)PT. 16.9 SECONDS (11.7-14.9)
[2025-01-22 16:06] LABS: AST(SGOT) 77 U/L (<=37); Alanine Aminotransfer ALT/SGPT 80 U/L (<=46); Albumin, Serum 3.8 g/dL (3.4-4.8); Alkaline Phosphatase 65 U/L (40-129); Anion Gap 12 (5-15); BUN 20 mg/dL (4-19); BUN/Creat Ratio 19.5 RATIO (10-20); CRP 3.14 mg/L (0.0-3.0); Calcium,Total 8.8 mg/dL (7.6-11.0); Carbon Dioxide 23.6 mmol/L (21.0-32.0); Chloride 106 mmol/L (98-108); Globulin 3.7 g/dL (2.2-4.2); Glucose 120 mg/dL (70-99); Potassium 3.9 mmol/L (3.3-5.1)
== END | disposition home or self-care (01) ==
LOC: LAB 14:21
PROVIDERS: PCP Family Medicine; Referring Provider Internal Medicine; Visit Provider Internal Medicine
DX: K76.0 Fatty (change of) liver, not elsewhere classified (principal); K75.4 Autoimmune hepatitis; E78.1 Pure hyperglyceridemia
CPT/HCPCS: 36415; 80053; 85025; 85610; 86140